=== PATIENT | female | born 1945 | race Two or more races ===

== ENCOUNTER 2020-01-22 09:36 | Outpatient (REF) | payer MEDICARE, SELFPAY ==
[2020-01-22 10:56] LABS: MANUAL DIFF FLAG NO
[2020-01-22 11:06] LABS: Basophils Percent Auto 0.5 % (0-2); Eosinophils Absolute Auto 0.2 X10*3/uL (0.0-0.4); Eosinophils Percent Auto 3.1 % (0-4); Hematocrit 40.3 % (37-47); Hemoglobin 13.6 g/dl (12.0-16.0); Imm Gran Abs Auto 0.01 X10*3/uL (0.00-0.03); Imm Gran Pct Auto 0.1 % (0.0-0.4); Lymphocytes Absolute Auto 2.6 X10*3/uL (1.2-4.9); Mean Corpuscular HGB Conc 33.7 g/dl (31.0-35.0); Mean Corpuscular Hemoglobin 31.1 pg (27.0-33.0); Mean Platelet Volume 9.6 fL (9.4-12.3); Monocytes Absolute Auto 0.6 X10*3/uL (0.1-1.2); Monocytes Percent Auto 8.4 % (2-11); Neutrophils Absolute Auto 3.9 X10*3/uL (2.0-8.3); Neutrophils Percent Auto 52.9 % (45-73); Platelet Count 330 X10*3/uL (160-400); Red Blood Count 4.38 X10*6/uL (4.20-5.50); Red Cell Distribution Width 12.2 % (11.0-16.0); White Blood Count 7.4 X10*3/uL (4.8-10.8)
[2020-01-22 11:50] LABS: Alanine Aminotransferase 19 U/L (0-31); Albumin Level 4.4 g/dL (3.5-5.0); Alkaline Phosphatase 53 U/L (39-117); Aspartate Amino Transferase 14 U/L (5-31); Bilirubin Total 0.5 mg/dL (0.0-1.0); Blood Urea Nitrogen 14 mg/dL (9-16); Calcium 9.3 mg/dL (8.4-10.2); Cholesterol 230 mg/dL; Estimated Glomerular Filt Rate > 60; Glucose Fasting 92 mg/dL (60-99); HDL Cholesterol 38 mg/dL; LDL Cholesterol Calculated 157 mg/dl; Total Protein 6.9 g/dL (6.5-8.0); Triglycerides 175 mg/dL
[2020-01-22 11:59] LABS: Anion Gap 12 (12-20); Carbon Dioxide 30 mmol/L (22-29); Chloride 104 mmol/L (96-108); Potassium 4.8 mmol/l (3.3-5.1); Sodium 141 mmol/L (135-145)
[2020-01-24 21:25] LABS: Folate 5.5 ng/mL (> or = 4.0); Vitamin B12 297 pg/mL (200-900)
== END 2020-01-22 09:37 | disposition home or self-care (01) ==
LOC: HO.LAB 09:36
PROVIDERS: PCP Internal Medicine; Visit Provider Internal Medicine
DX: E78.00 Pure hypercholesterolemia, unspecified (principal); E53.8 Deficiency of other specified B group vitamins; E55.9 Vitamin D deficiency, unspecified
CPT/HCPCS: 36415; 80053; 80061; 82306; 82607; 82746; 85025

== ENCOUNTER 2020-02-15 09:26 | Outpatient (REF) | payer MEDICARE, SELFPAY ==
--- NOTE | 2020-02-15 10:23 | XR_ITS ---
EXAMINATION: XR SHOULDER, RIGHT CLINICAL INFORMATION: Hypertrophic osteoarthropathy. Right shoulder pain. COMPARISON: None TECHNIQUE: AP external rotation, Grashey, scapular Y, and axillary views of the right shoulder. FINDINGS: There is loss of the glenohumeral joint space and right AC joint space with mild periapical spurring. There is a large inferior acromion enthesophyte impinging the rotator cuff. XR/XR shoulder RT min 2V IMPRESSION: Advanced degenerative arthritic changes right shoulder with moderate size inferior acromial spurring with likely impingement of the rotator cuff.
== END 2020-02-15 09:27 | disposition home or self-care (01) ==
LOC: HO.XRAY 09:26
PROVIDERS: PCP Internal Medicine; Referring Provider Internal Medicine; Visit Provider Student in an Organized Health Care Education/Training Program
DX: M25.511 Pain in right shoulder (principal); M89.49 Other hypertrophic osteoarthropathy, multiple sites
CPT/HCPCS: 20610; 73030; 99212

== ENCOUNTER 2020-03-01 11:21 | Day surgery (SDC) | payer MEDICARE, SELFPAY ==
[2020-02-23 11:42] VITALS: BMI 64.9
[2020-03-01 11:21] VITALS: BMI 29.4
--- NOTE | 2020-03-01 11:49 | HO.ANESPROP2 ---
[facility] Past Medical History Medical History (Updated 02/23/20 @ 11:42 by Yandy Sanchez) Allergic rhinitis Degenerative disc disease, lumbar GERD (gastroesophageal reflux disease) Hypovitaminosis D Insomnia Mild asthma Osteoarthritis Pure hypercholesterolemia Right shoulder pain Trigeminal neuralgia Family History Family History (Updated 01/28/20 @ 14:15 by ISAIAS Alcnatar) Father Leukemia Mother Gallbladder cancer Maternal Aunt Breast cancer Chronic mental illness Son Liver failure Family/Other FH: mental illness Surgical History Surgical History (Updated 02/23/20 @ 11:42 by Yandy Sanchez) H/O colonoscopy History of cataract surgery History of cholecystectomy History of esophagogastroduodenoscopy (EGD) History of tubal ligation Social History Social History (Updated 02/15/20 @ 09:39 by Tomi Gilman LPN) Alcohol intake: never Smoking Status: Never smoker Use of substances other than those prescribed or required for medical reasons: No Advance Directives Information Provided: No Recently lost weight without trying: No Meds Allergies Allergy/AdvReac Type Severity Reaction Status Date / Time aspirin [ASPIRIN] Allergy Intermediate VOMITING Verified 02/23/20 11:45 omeprazole Allergy Intermediate vomiting, Verified 02/23/20 11:45 abd pain gabapentin AdvReac Intermediate tiredness,n Verified 02/23/20 11:45 ightmares Home Medications Medication Instructions Recorded Confirmed Type mirabegron 25 mg tablet,extended 25 mg PO DAILY 01/31/20 02/23/20 History release 24 hr diclofenac sodium 1 % topical gel 2 g TOPICAL .twice a day g 02/15/20 02/23/20 History Exam Exam Date and Time: March 01, 2020 1149 Height,Weight and Vital Signs: Height 5 ft 2 in Weight 73.028 kg Airway Mallampati Class: III (2 teeth present on bottom) TM Dist: >3cm Neck ROM: Full Partial: Upper Heart: RRR Lungs: CTA BL Assessment and Plan Assessment Anesthesia Assessment: Anesthesia Plan Discussed and Chart Reviewed Final Anesthetic Review NPO: Yes (No meds) ASA Class: II Final Preanesthetic Review: Meds/Allgs Chart Reviewed and Consent Obtained/Reviewed Patient Risk: Intermediate Procedure Risk: Intermediate Anesthetic Plan Anesthetic Plan: MAC: Disposition: Standard PACU
[2020-03-01 11:50] VITALS: BP 151/71; PULSE 67; RESP 16; TEMP 35.9; O2SAT 99
[2020-03-01] MEDS: Lactated Ringers 1,000 ML 50 ML IVCONT (11:53)
--- NOTE | 2020-03-01 12:03 | MHC.SHP ---
Pre-Procedural Eval Section B Chief Complaint: SCREENING Relevant Family History (Specify if Yes): No Relevant Social History: None Present Medications: see Short Stay Collaborative assessment Medical History: Significant History (HTN) History of Previous Operations: Relevant previous surgery/procedure and date(s) (cholecystectomy, asthma, depression, osteporosis) Allergies: Allergies Allergy/AdvReac Type Severity Reaction Status Date / Time aspirin [ASPIRIN] Allergy Intermediate VOMITING Verified 02/23/20 11:45 omeprazole Allergy Intermediate vomiting, Verified 02/23/20 11:45 abd pain gabapentin AdvReac Intermediate tiredness,n Verified 02/23/20 11:45 ightmares Review of Systems Sugical H&P ROS: Negative: Constitution, Cardiovascular, Respiratory, Neurological, Psychiatric, Hem-Onc, Allergic/Immunologic, Gastrointestinal, Genitourinary, Musculoskeletal, Integumentary, Endocrine and Eyes/Ears/Nose/Throat Exam Surgical H&P Exam: Normal: HEENT, Normal: Heart, Normal: Lungs, Normal: Extremities, Normal: Abdomen, Normal: Skin and Normal: Neurological Plan Diagnosis/Plan: Unchanged Patient has been examined and remains a candidate for the planned procedure
--- NOTE | 2020-03-01 12:04 | PM.OP ---
Brief Operative Note Date of Service: 03/01/20 Pre-op diagnosis: screening Post-op diagnosis: same Procedure: see op note Surgeon: Aaron Morillo MD Anesthesia: MAC Estimated blood loss (mL): 0 Condition: stable Disposition: PACU
--- NOTE | 2020-03-01 12:05 | W.PM.OPN ---
Operative Note Operative Note Date of Service: 03/01/20 Narrative: Operative Information Procedure Description: Colonoscopy COLONOSCOPY Instrument: Olympus variable stiffness pediatric scope 190L Colonoscopy Monitoring: Vital signs and clinical assessment, continuous EKG monitoring, Pulse oximetry, Carbon Dioxide monitoring and blood pressure monitoring were done throughout the procedure. Colon withdrawal time was 12 minutes. Procedure: The patient was placed in the left lateral decubitis position and pre-procedure medications were administered. After a digital rectal examination of the ano-rectum, the video colonoscope was inserted into the rectum and advanced through the colon to the cecum The colonoscope was slowly withdrawn in a retrograde panoramic fashion and the colon mucosa was carefully examined including a retroflexed view of the rectum. Findings and interventions are described below. Procedure Difficulty: difficult due to redundant colon, had to put pressure LLQ Findings: Terminal Ileum-not intubated Cecum:normal Ascending Colon: x 2 sessile polyps 8-9 mm removed with biopsy forceps Transverse Colon -normal Descending Colon:normal Sigmoid Colon: severe diverticulosis with mucosal hypertrophy and narrowing of the sigmoid Rectum: Retroflexion with moderate internal hemorrhoids, grade I, 8 mm sessile polyp removed with forceps Anorectum - normal Colon preparation: [place] Bowel Preparation Scale Right colon; 2 Transverse colon: 1 Left colon; 1 (0 = Unprepared colon segment with mucosa not seen due to solid stool that cannot be cleared. 1 = Portion of mucosa of the colon segment seen, but other areas of the colon segment not well seen due to staining, residual stool and/or opaque liquid. 2 = Minor amount of residual staining, small fragments of stool and/or opaque liquid, but mucosa of colon segment seen well. 3 = Entire mucosa of colon segment seen well with no residual staining, small fragments of stool or opaque liquid) Impression and Post Procedure Diagnosis: severe diverticulosis polyps internal hemorrhoids Plan: High fiber diet leaflet Avoid straining at stool, epsom salts and sitz bath prn, anusol supps or cream prn Repeat Colonoscopy in 1-2 yrs years due to prep Above findings were reviewed with the patient and relevant handouts were provided if indicated.
[2020-03-01 12:45] VITALS: BP 143/79; PULSE 92; RESP 16; TEMP 36.4; O2SAT 96
[2020-03-01 13:00] VITALS: BP 146/65; PULSE 81; RESP 18; O2SAT 98
[2020-03-01 13:15] VITALS: BP 148/58; PULSE 61; RESP 18; O2SAT 98
== END 2020-03-01 14:00 | disposition home or self-care (01) ==
PROVIDERS: PCP Internal Medicine; Visit Provider Internal Medicine Gastroenterology
PROC: 0DJD8ZZ Inspection of Lower Intestinal Tract, Via Natural or Artificial Opening Endoscopic (ICD-10-PCS; CPT 45378; principal; 2020-03-01 12:20)
DX: Z12.11 Encounter for screening for malignant neoplasm of colon (principal); Z86.010 Personal history of colon polyps; D12.2 Benign neoplasm of ascending colon; K62.1 Rectal polyp; K57.30 Diverticulosis of large intestine without perforation or abscess without bleeding; K64.0 First degree hemorrhoids; K21.9 Gastro-esophageal reflux disease without esophagitis; J45.998 Other asthma; E55.9 Vitamin D deficiency, unspecified; E78.00 Pure hypercholesterolemia, unspecified; Z79.899 Other long term (current) drug therapy; Z88.8 Allergy status to other drugs, medicaments and biological substances
CPT/HCPCS: 45380; 88305

== ENCOUNTER → 2020-03-22 09:09 | Outpatient (BNVA) | payer MEDICARE, SELFPAY | PROVIDERS: Visit Provider Physician Assistant | DX: K63.5 Polyp of colon (principal); K57.90 Diverticulosis of intestine, part unspecified, without perforation or abscess without bleeding; K64.9 Unspecified hemorrhoids; D36.9 Benign neoplasm, unspecified site | CPT/HCPCS: Q3014 ==

== ENCOUNTER → 2020-06-15 14:41 | Outpatient (BNVA) | payer MEDICARE, SELFPAY | PROVIDERS: PCP Internal Medicine; Visit Provider Student in an Organized Health Care Education/Training Program | DX: M19.011 Primary osteoarthritis, right shoulder (principal); Z79.899 Other long term (current) drug therapy | CPT/HCPCS: 20610; 99212 ==

== ENCOUNTER 2020-09-18 13:30 | Outpatient (REF) | payer MEDICARE, SELFPAY ==
--- NOTE | ~2020-09-18 | MM_ITS ---
EXAMINATION: MM SCREENING DIGITAL BREAST TOMOSYNTHESIS, BILATERAL CLINICAL INFORMATION: Screening. Asymptomatic. The lifetime risk of breast cancer based on the Tyrer-Cuzick Model is 6%. COMPARISON: Mammography: 04/30/2019, 03/09/2018, 10/17/2016 TECHNIQUE: Digital breast tomosynthesis is performed in both the craniocaudal and mediolateral oblique views along with computer-aided detection (CAD). Synthesized 2D images are generated from the tomosynthesis. FINDINGS: The breasts are almost entirely fatty (ACR BI-RADS breast composition Category a). There are no significant masses, abnormal calcifications, or other abnormalities. Background stromal markings are stable. The axilla and skin contours are unremarkable. No significant changes. MM/MM tomosynthesis screening BI IMPRESSION: No mammographic evidence of malignancy. ASSESSMENT: BI-RADS 1: Negative RECOMMENDATION: Routine annual mammography screening. This patient's information was entered into a reminder system with a target due date for their next mammogram.
== END 2020-09-18 13:31 | disposition home or self-care (01) ==
LOC: HO.MAMMO 13:30
PROVIDERS: Visit Provider Internal Medicine
DX: Z12.31 Encounter for screening mammogram for malignant neoplasm of breast (principal)
CPT/HCPCS: 77063; 77067

== ENCOUNTER 2020-12-25 13:41 | Outpatient (REF) | payer MEDICARE, SELFPAY ==
[2020-12-25 15:28] LABS: Alanine Aminotransferase 12 U/L (0-31); Albumin Level 4.3 g/dL (3.5-5.0); Alkaline Phosphatase 58 U/L (39-117); Anion Gap 12 (12-20); Aspartate Amino Transferase 11 U/L (5-31); Bilirubin Total 0.5 mg/dL (0.0-1.0); Blood Urea Nitrogen 18 mg/dL (9-16); Calcium 9.7 mg/dL (8.4-10.2); Carbon Dioxide 26 mmol/L (22-29); Chloride 105 mmol/L (96-108); Estimated Glomerular Filt Rate > 60; Glucose Random 98 mg/dL (60-115); Potassium 4.2 mmol/L (3.3-5.1); Sodium 139 mmol/L (135-145); Total Protein 6.8 g/dL (6.5-8.0)
== END 2020-12-25 13:42 | disposition home or self-care (01) ==
LOC: HO.LAB 13:41
PROVIDERS: Visit Provider Nurse Practitioner Family
DX: M19.011 Primary osteoarthritis, right shoulder (principal)
CPT/HCPCS: 36415; 80053; 99212

== ENCOUNTER 2021-01-11 11:49 | Outpatient (REF) | payer MEDICARE, SELFPAY ==
--- NOTE | ~2021-01-11 | XR_ITS ---
EXAMINATION: XR SHOULDER, RIGHT CLINICAL INFORMATION: Pain. COMPARISON: None. TECHNIQUE: AP, Grashey, and axillary views of the right shoulder. FINDINGS: Severe glenohumeral joint space narrowing with subchondral sclerosis, mild bony remodeling, and marginal osteophytes. Acromioclavicular marginal osteophytes with prominent subchondral spurring. No acute fracture or dislocation. XR/XR shoulder RT min 2V IMPRESSION: Severe glenohumeral and moderate acromioclavicular osteoarthritis, unchanged. Prominent subacromial spurring.
== END 2021-01-11 11:50 | disposition home or self-care (01) ==
LOC: HO.HOSX 11:49
PROVIDERS: Visit Provider Orthopaedic Surgery
DX: M19.011 Primary osteoarthritis, right shoulder (principal)
CPT/HCPCS: 20610; 73030; 99202; J1100

== ENCOUNTER 2021-02-02 09:19 | Outpatient (REF) | payer MEDICARE, SELFPAY ==
[2021-02-02 10:11] LABS: Alanine Aminotransferase 13 U/L (0-31); Albumin Level 4.3 g/dL (3.5-5.0); Alkaline Phosphatase 55 U/L (39-117); Anion Gap 11 (12-20); Aspartate Amino Transferase 11 U/L (5-31); Bilirubin Total 0.5 mg/dL (0.0-1.0); Blood Urea Nitrogen 15 mg/dL (9-16); Calcium 9.4 mg/dL (8.4-10.2); Carbon Dioxide 28 mmol/L (22-29); Chloride 107 mmol/L (96-108); Cholesterol 155 mg/dL; Estimated Glomerular Filt Rate > 60; Glucose Fasting 109 mg/dL (60-99); HDL Cholesterol 34 mg/dL; LDL Cholesterol Calculated 95 mg/dl; Potassium 4.3 mmol/L (3.3-5.1); Sodium 142 mmol/L (135-145); Total Protein 6.9 g/dL (6.5-8.0); Triglycerides 132 mg/dL
[2021-02-07 13:56] LABS: Vitamin D 25-OH, D2 <4 ng/mL; Vitamin D 25-OH, D3 35 ng/mL; Vitamin D 25-OH, Total 35 ng/mL (30-100)
== END 2021-02-02 09:20 | disposition home or self-care (01) ==
LOC: HO.LAB 09:19
PROVIDERS: PCP Internal Medicine; Visit Provider Internal Medicine
DX: E55.9 Vitamin D deficiency, unspecified (principal); J45.30 Mild persistent asthma, uncomplicated; E78.5 Hyperlipidemia, unspecified
CPT/HCPCS: 36415; 80053; 80061; 82306

== ENCOUNTER → 2021-04-23 10:39 | Outpatient (BNVA) | payer MEDICARE, SELFPAY | PROVIDERS: PCP Internal Medicine; Visit Provider Nurse Practitioner Family | DX: M19.011 Primary osteoarthritis, right shoulder (principal) | CPT/HCPCS: 99212 ==

== ENCOUNTER 2021-09-19 14:33 | Outpatient (REF) | payer MEDICARE, SELFPAY ==
--- NOTE | ~2021-09-19 | MM_ITS ---
EXAMINATION: MM SCREENING DIGITAL BREAST TOMOSYNTHESIS, BILATERAL CLINICAL INFORMATION: Screening. Asymptomatic. The lifetime risk of breast cancer based on the Tyrer-Cuzick Model is 3.1%. COMPARISON: Mammography: September 18, 2020 and studies dating back to August 18, 2014 TECHNIQUE: Digital breast tomosynthesis is performed in both the craniocaudal and mediolateral oblique views along with computer-aided detection (CAD). Synthesized 2D images are generated from the tomosynthesis. FINDINGS: The breasts are almost entirely fatty (ACR BI-RADS breast composition Category a). There are no significant masses, abnormal calcifications, or other abnormalities. MM/MM tomosynthesis screening BI IMPRESSION: There are no significant changes from prior study. ASSESSMENT: BI-RADS 1: Negative RECOMMENDATION: Routine annual mammography screening. This patient's information was entered into a reminder system with a target due date for their next mammogram.
== END 2021-09-19 14:34 | disposition home or self-care (01) ==
LOC: HO.MAMMO 14:33
PROVIDERS: PCP Internal Medicine; Visit Provider Internal Medicine
DX: Z12.31 Encounter for screening mammogram for malignant neoplasm of breast (principal)
CPT/HCPCS: 77063; 77067

== ENCOUNTER → 2022-01-17 09:41 | Outpatient (BNVA) | payer MEDICARE, SELFPAY | PROVIDERS: PCP Internal Medicine; Visit Provider Student in an Organized Health Care Education/Training Program | DX: M19.011 Primary osteoarthritis, right shoulder (principal); M54.16 Radiculopathy, lumbar region | CPT/HCPCS: 20610; 99202 ==

== ENCOUNTER 2022-05-01 09:04 | Outpatient (REF) | payer OTHER, SELFPAY ==
[2022-05-01 10:20] LABS: Alanine Aminotransferase 16 U/L (0-31); Albumin Level 4.2 g/dL (3.5-5.0); Alkaline Phosphatase 58 U/L (39-117); Anion Gap 8 (12-20); Aspartate Amino Transferase 12 U/L (5-31); Bilirubin Total 0.3 mg/dL (0.0-1.0); Blood Urea Nitrogen 10 mg/dL (9-16); Calcium 9.3 mg/dL (8.4-10.2); Carbon Dioxide 30 mmol/L (22-29); Chloride 107 mmol/L (96-108); Cholesterol 247 mg/dL; Estimated Glomerular Filt Rate > 60; Glucose Fasting 99 mg/dL (60-99); HDL Cholesterol 42 mg/dL; LDL Cholesterol Calculated 170 mg/dl; Potassium 4.3 mmol/L (3.3-5.1); Sodium 141 mmol/L (135-145); Total Protein 6.8 g/dL (6.5-8.0); Triglycerides 178 mg/dL
[2022-05-01 10:40] LABS: Vitamin D 25-OH Total 37.2 ng/mL (>30)
== END 2022-05-01 09:05 | disposition home or self-care (01) ==
LOC: HO.LAB 09:04
PROVIDERS: PCP Internal Medicine; Visit Provider Internal Medicine
DX: J45.30 Mild persistent asthma, uncomplicated (principal); E55.9 Vitamin D deficiency, unspecified; E78.5 Hyperlipidemia, unspecified
CPT/HCPCS: 36415; 80053; 80061; 82306

== ENCOUNTER 2022-10-21 07:46 | Outpatient (REF) | payer OTHER, SELFPAY ==
[2022-10-21 09:15] LABS: Alanine Aminotransferase 12 U/L (0-31); Albumin Level 4.1 g/dL (3.5-5.0); Alkaline Phosphatase 64 U/L (39-117); Anion Gap 11 (12-20); Aspartate Amino Transferase 11 U/L (5-31); Bilirubin Total 0.4 mg/dL (0.0-1.0); Blood Urea Nitrogen 11 mg/dL (9-16); Calcium 9.8 mg/dL (8.4-10.2); Carbon Dioxide 31 mmol/L (22-29); Chloride 107 mmol/L (96-108); Cholesterol 226 mg/dL; Estimated Glomerular Filt Rate > 60; Glucose Fasting 105 mg/dL (60-99); HDL Cholesterol 35 mg/dL; LDL Cholesterol Calculated 157 mg/dl; Potassium 4.3 mmol/L (3.3-5.1); Sodium 145 mmol/L (135-145); Total Protein 6.9 g/dL (6.5-8.0); Triglycerides 170 mg/dL
[2022-10-21 09:22] LABS: Vitamin D 25-OH Total 47.4 ng/mL (>30)
== END 2022-10-21 07:47 | disposition home or self-care (01) ==
LOC: HO.LAB 07:46
PROVIDERS: PCP Internal Medicine; Visit Provider Internal Medicine
DX: E55.9 Vitamin D deficiency, unspecified (principal); E78.00 Pure hypercholesterolemia, unspecified; E78.5 Hyperlipidemia, unspecified
CPT/HCPCS: 36415; 80053; 80061; 82306

== ENCOUNTER 2022-10-25 11:23 | Outpatient (REF) | payer OTHER, SELFPAY ==
--- NOTE | ~2022-10-25 | MM_ITS ---
EXAMINATION: MM SCREENING DIGITAL BREAST TOMOSYNTHESIS, BILATERAL CLINICAL INFORMATION: Screening. Asymptomatic. The lifetime risk of breast cancer based on the Tyrer-Cuzick Model is 1.9%. COMPARISON: Mammography: This study is compared with prior exams dating back to 2017. TECHNIQUE: Digital breast tomosynthesis is performed in both the craniocaudal and mediolateral oblique views along with computer-aided detection (CAD). Synthesized 2D images are generated from the tomosynthesis. FINDINGS: There are scattered areas of fibroglandular density (ACR BI-RADS breast composition Category b). There are no significant masses, abnormal calcifications, or other abnormalities. MM/MM tomosynthesis screening BI IMPRESSION: No mammographic evidence of malignancy. ASSESSMENT: BI-RADS BI-RADS 1 - Negative RECOMMENDATION: Routine annual mammography screening. 1 year F/U This examination should not preclude the clinical evaluation of a suspicious palpable abnormality. This patient's information was entered into a reminder system with a target due date for their next mammogram.
== END 2022-10-25 11:24 | disposition home or self-care (01) ==
LOC: HO.MAMMO 11:23
PROVIDERS: PCP Internal Medicine; Visit Provider Internal Medicine
DX: Z12.31 Encounter for screening mammogram for malignant neoplasm of breast (principal)
CPT/HCPCS: 77063; 77067

== ENCOUNTER → 2022-10-25 11:30 | Outpatient (BNV) | payer OTHER, SELFPAY | PROVIDERS: PCP Internal Medicine; Visit Provider Radiology Diagnostic Radiology | DX: Z12.31 Encounter for screening mammogram for malignant neoplasm of breast (principal) | CPT/HCPCS: 77063; 77067 ==

== ENCOUNTER 2023-04-08 09:46 | Outpatient (AMB) | payer OTHER, SELFPAY ==
--- NOTE | 2023-04-08 09:47 | MHC.PC.OV ---
Vital Signs 04/08/23 09:48 04/08/23 09:53 Height 5 ft 2 in 5 ft 2 in Weight 156 lb 154 lb 5.177 oz BMI 28.5 28.2 BP 124/76 124/76 Blood Pressure Location Lt brachial Lt brachial Position Sitting Sitting Pulse 84 Pulse Source Pulse Oximeter Pulse Oximetry (%) 96 Oxygen Delivery Method Room Air Intake Visit Reasons: lipids Intake Note: Patient here for a follow up Lipids Wan Support Specialist Required: No Accompanied by: Self / Same As Patient Allergies aspirin [ASPIRIN] Allergy (Intermediate, Verified 04/08/23 10:07) VOMITING omeprazole Allergy (Intermediate, Verified 04/08/23 10:07) vomiting, abd pain gabapentin Adverse Reaction (Intermediate, Verified 04/08/23 10:07) tiredness,nightmares Medication List - Last Reconciled 04/08/23 by Sarah Gonzales MD acetaminophen ER (Tylenol Arthritis Pain) 650 mg PO Q8H PRN albuterol sulfate 90 mcg/actuation 2 puffs inhalation Q6H PRN 30 days atorvastatin 20 mg PO BEDTIME 90 days fluticasone propionate 50 mcg/actuation (Flonase Allergy Relief) 1 spray intranasal DAILY temazepam 30 mg PO BEDTIME PRN 30 days tramadol 50 mg PO BID PRN 30 days Ventolin HFA 90 mcg/actuation (albuterol sulfate) 2 puffs inhalation Q6H PRN 30 days NS Tobacco use date assessed: 10/09/22 Fall risk assessment: No Falls in past year Last assessed Fall Risk: 04/08/23 Dental Screening Dental Screen Date: 04/08/23 Did you have a dental visit in the last 12 months?: No Did you have a dental problem in the last 6 months where you did not have access to dental care?: No Was dental information given to patient?: No HPI HPI Comments History of Present Illness Details This is a 78-year-old female with moderate asthma, pure hypercholesterolemia and insomnia that complains of nasal congestion and cough that started about 2 days ago with no fever or sick contacts. She had has and 2 episodes of asthma exacerbations since January and will benefit from having a longstanding inhaler. Cholesterol has improved from last time. Insomnia stable with medication. [facility] Medical History (Updated 04/08/23 @ 11:35 by Sarah Gonzales MD) Mild asthma Dyslipidemia Colon polyps Degenerative disc disease, lumbar GERD (gastroesophageal reflux disease) Osteoarthritis Insomnia Allergic rhinitis Mild asthma Right shoulder pain Hypovitaminosis D Trigeminal neuralgia Surgical History History of surgery History of bladder surgery History of esophagogastroduodenoscopy (EGD) H/O colonoscopy History of cataract surgery History of cholecystectomy History of tubal ligation Family History Father Leukemia Mother Gallbladder cancer Maternal Aunt Breast cancer Chronic mental illness Son Liver failure Family/Other FH: mental illness Daughter No problems noted. Social History Housing: Apartment Alcohol intake: never Patient Tobacco Use Status: Never used Tobacco e-Cigarette/Vaping Use: Never Used Second Hand Smoke Exposure: No service: No Current occupational status: disabled Cognitive needs: No Hearing needs: No Vision needs: No Questionnaire Thrive Questionnaire Date Thrive assessed: 10/09/22 JAMEEL-7 AMB Questionnaire JAMEEL-7 Date JAMEEL - 7 assessed: 10/09/22 Source: Developed by Drs. Alpesh Carter, Maritza Richards, Mitchel Head and colleagues, with an educational helga from [employer]. Review of Systems Const All systems reviewed & are unremarkable except as noted in HPI and below Eyes Reports no additional complaints, Denies change in vision and Denies other visual disturbances Card Denies chest pain at rest, Denies chest pain with activity, Denies edema, Denies irregular heart rhythm, Denies claudication, Denies dyspnea, Denies dyspnea on exertion, Denies orthopnea, Denies paroxysmal nocturnal dyspnea and Denies slow heart rate Resp Denies cough, Denies dyspnea and Denies dyspnea on exertion GI Denies abdominal pain, Denies change in bowel habits, Denies excessive flatus, Denies nausea and Denies vomiting Denies urinary incontinence, Denies urinary hesitancy and Denies urinary urgency Musc Denies abnormal gait, Denies atrophy, Denies deformity and Denies limited range of motion Skin/Breast Denies bleeding lesions, Denies changing lesions and Denies rash Neuro Denies abnormal gait and Denies lack of coordination Physical exam (Primary Care) Vital Signs: Last Vital Signs Pulse 84 04/08/23 09:53 BP 124/76 12/26/23 09:53 Pulse Ox 96 04/08/23 09:53 Oxygen Delivery Method Room Air 04/08/23 09:53 BMI result Body Mass Index 28.2 Tobacco/Smoking Status: Tobacco use Status Tobacco use date assessed 10/09/22 04/08/23 09:54 Patient Tobacco Use Status Never used Tobacco 04/08/23 09:54 e-Cigarette/Vaping Use Never Used 04/08/23 09:54 Thrive Assessment: Date of Thrive Assessment Date Thrive assessed 10/09/22 04/08/23 09:54 Eyes General: appearance normal, both eyes and all related structures Eyelids: Yes eyelids normal Conjunctivae: conjunctivae normal Neck Neck: Yes normal visual inspection and Yes supple Resp Effort & Inspection: normal respiratory effort Auscultation: clear to auscultation bilaterally Cardio Jugular venous distension: no JVD Rate: regular rate Rhythm: regular rhythm Heart sounds: S1 normal heart sound present and S2 normal heart sound present Extrem General: Yes full ROM Office Procedures Flu Questionnaire Does the patient have a severe egg allergy?: No Immunizations flu vacc [id number] 6mos up(PF) 60 mcg(15 mcgx4)/0.5 mL IM syringe Performing Provider: Sarah Gonzales MD [facility] Documented (not given) by: ISAIAS Singh on 04/08/23 10:19 Reason Not Given: Not Given Assessment and Plan Assessment & Plan (1) URI (upper respiratory infection): Code(s): J06.9 - Acute upper respiratory infection, unspecified Plan: COVID, flu, RSV test ordered (2) Moderate asthma: Code(s): J45.909 - Unspecified asthma, uncomplicated Plan: Start Arnuity. Use rescue inhaler as needed. (3) Pure hypercholesterolemia: Code(s): E78.00 - Pure hypercholesterolemia, unspecified Plan: Continue statins. (4) Insomnia: Code(s): G47.00 - Insomnia, unspecified Qualifiers: Insomnia type: primary Qualified Code(s): F51.01 - Primary insomnia Plan: Continue temazepam. Orders: Orders SARS-CoV2/FLU/RSV Today R09.89 - Other specified symptoms and signs involving the circulatory and respiratory systems Influenza [id number] Immunization Today Z23 - Encounter for immunization Medications: New fluticasone furoate 50 mcg/actuation (Arnuity Ellipta) 1 inh inhalation DAILY 30 days 30 ea 2RF J45.909 - Unspecified asthma, uncomplicated benzonatate 100 mg PO BID 5 days PRN 10 caps 0RF cough Coding Level of Care Code Est Pt Level 4 (19138) Diagnoses URI (upper respiratory infection) J06.9 Moderate asthma J45.909 Pure hypercholesterolemia E78.00 Primary insomnia F51.01 Insomnia type: primary Time Spent (min) 23
[2023-04-08 09:48] VITALS: BP 124/76; BMI 28.5
[2023-04-08 09:53] VITALS: BP 124/76; PULSE 84; O2SAT 96; BMI 28.2
== END 2023-04-08 10:14 | disposition home or self-care (01) ==
PROVIDERS: PCP Internal Medicine; Visit Provider Internal Medicine
DX: J06.9 Acute upper respiratory infection, unspecified (principal); J45.909 Unspecified asthma, uncomplicated; E78.00 Pure hypercholesterolemia, unspecified; F51.01 Primary insomnia
CPT/HCPCS: 99214

== ENCOUNTER 2023-04-08 10:22 | Outpatient (REF) | payer OTHER, SELFPAY ==
[2023-04-08 11:28] LABS: Influenza A PCR NEGATIVE (Negative); Influenza B PCR NEGATIVE (Negative); Resp Syncy Virus RNA Qual PCR NEGATIVE (Negative); SARS COV2 PCR INHOUSE POSITIVE (Negative)
== END 2023-04-08 10:23 | disposition home or self-care (01) ==
LOC: HO.LAB 10:22
PROVIDERS: PCP Internal Medicine; Visit Provider Internal Medicine
DX: Z11.52 Encounter for screening for COVID-19 (principal); Z20.822 Contact with and (suspected) exposure to COVID-19; R09.89 Other specified symptoms and signs involving the circulatory and respiratory systems
CPT/HCPCS: 0241U

== ENCOUNTER 2023-10-14 09:25 | Outpatient (AMB) | payer OTHER, SELFPAY ==
[2023-10-14 09:29] VITALS: BP 122/70; PULSE 69; O2SAT 96; BMI 28.4
--- NOTE | 2023-10-14 09:29 | A.OFFPC_ITS ---
Vital Signs 10/14/23 09:29 Height 5 ft 2 in Weight 155 lb 0.4 oz BMI 28.4 BP 122/70 Blood Pressure Location Lt brachial Position Sitting Pulse 69 Pulse Source Pulse Oximeter Pulse Oximetry (%) 96 Oxygen Delivery Method Room Air Intake Visit Reasons: pe Intake Note: Patient is here today for a physical. Release And Technical Records Clerk Required: No Accompanied by: Self / Same As Patient Allergies aspirin [ASPIRIN] Allergy (Intermediate, Verified 10/14/23 09:42) VOMITING omeprazole Allergy (Intermediate, Verified 10/14/23 09:42) vomiting, abd pain gabapentin Adverse Reaction (Intermediate, Verified 10/14/23 09:42) tiredness,nightmares Medication List - Last Reconciled 10/14/23 by Sarah Gonzales MD acetaminophen ER (Tylenol Arthritis Pain) 650 mg PO Q8H PRN albuterol sulfate 90 mcg/actuation 2 puffs inhalation Q6H PRN 30 days atorvastatin 20 mg PO BEDTIME 90 days benzonatate 100 mg PO BID PRN 5 days fluticasone furoate 50 mcg/actuation (Arnuity Ellipta) 1 inh inhalation DAILY 30 days fluticasone propionate 50 mcg/actuation (Flonase Allergy Relief) 1 spray intranasal DAILY nirmatrelvir-ritonavir 300 mg (150 mg x 2)-100 mg (Paxlovid) 3 ea PO PER PKG DIR 5 days temazepam 30 mg PO BEDTIME PRN 30 days tramadol 50 mg PO BID PRN 30 days Ventolin HFA 90 mcg/actuation (albuterol sulfate) 2 puffs inhalation Q6H PRN 30 days NS Tobacco use date assessed: 10/14/23 Fall risk assessment: No Falls in past year Last assessed Fall Risk: 10/14/23 Dental Screening Dental Screen Date: 10/14/23 Did you have a dental visit in the last 12 months?: No Did you have a dental problem in the last 6 months where you did not have access to dental care?: No Was dental information given to patient?: Patient has dentist HPI HPI Comments History of Present Illness Details This is 78-year-old female that comes for her physical exam. Last mammogram was 2022 and was normal. Last colonoscopy was 2019. Denies any acute complaints. Chest pain or shortness on breath. Compliant with medications. [facility] Medical History (Updated 04/08/23 @ 11:35 by Sarah Gonzales MD) Mild asthma Dyslipidemia Colon polyps Degenerative disc disease, lumbar GERD (gastroesophageal reflux disease) Osteoarthritis Insomnia Allergic rhinitis Mild asthma Right shoulder pain Hypovitaminosis D Trigeminal neuralgia Surgical History History of surgery History of bladder surgery History of esophagogastroduodenoscopy (EGD) H/O colonoscopy History of cataract surgery History of cholecystectomy History of tubal ligation Family History Father Leukemia Mother Gallbladder cancer Maternal Aunt Breast cancer Chronic mental illness Son Liver failure Family/Other FH: mental illness Daughter No problems noted. Social History Housing: Apartment Alcohol intake: never Patient Tobacco Use Status: Never used Tobacco e-Cigarette/Vaping Use: Never Used Second Hand Smoke Exposure: No service: No Current occupational status: disabled Cognitive needs: No Hearing needs: No Vision needs: No Questionnaire PHQ-9 Over the last 2 weeks, how often have you been bothered by any of the following problems? 1. Little interest or pleasure in doing things: not at all 2. Feeling down, depressed, or hopeless: not at all 3. Trouble falling or staying asleep, or sleeping too much: not at all 4. Feeling tired or having little energy: not at all 5. Poor appetite or overeating: not at all 6. Feeling bad about yourself - or that you are a failure or have let yourself or your family down: not at all 7. Trouble concentrating on things, such as reading the newspaper or watching television: not at all 8. Moving or speaking so slowly that other people could have noticed. Or the opposite - being so fidgety or restless that you have been moving around a lot more than usual: not at all 9. Thoughts that you would be better off or of hurting yourself in some way: not at all Total score: 0 Depression Screening Interpretation: Negative Depression Screening Done: Yes 48700 - PHQ-9 Billing: Yes Source: Developed by Drs. Alpesh Carter, Maritza BMitchel Bailey and colleagues, with an educational helga from [employer]. Thrive Questionnaire Date Thrive assessed: 10/14/23 I am a: Patient What is your living situation today?: I have a steady place to live Within the past 12 months, did the food you bought not last and you didn't have the money to get more?: Never true Within the past 12 months, did you worry whether your food would run out before you got money to buy more?: Never true Do you have trouble paying for medicines?: No Do you have trouble getting transportation to medical appointments?: No Do you have trouble paying your heating and electricity bill?: No Do you have trouble taking care of your child, family member or friend?: No Do you have trouble with day-to-day activities such as bathing, preparing meals, shopping, managing finances, etc.?: No Are you currently unemployed and looking for a job?: No Are you interested in more education?: No Please select the resources that you would like help with: None Currently or been in a relationship where the following occur: No concerns reported THRIVE Score: 0 AUDIT C Alcohol Use Questionnaire (AUDIT-C) 1. How often do you have a drink containing alcohol?: Never Total Score: 0 Score Reviewed/Action Taken: No JAMEEL-7 AMB Questionnaire JAMEEL-7 Date JAMEEL - 7 assessed: 10/14/23 Feeling nervous, anxious, or on edge: 0 = Not at all Not being able to stop or control worryin = Not at all Worrying too much about different things: 0 = Not at all Trouble relaxin = Not at all Being so restless that it is hard to sit still: 0 = Not at all Becoming easily annoyed or irritable: 0 = Not at all Feeling afraid as if something awful might happen: 0 = Not at all Total JAMEEL-7 score (0-4 normal; 5-9 mild; 10-14 moderate; 15-21 severe): 0 Source: Developed by Drs. Alpesh Carter, Mitchel Reyes and colleagues, with an educational helga from [employer] Business Plan. JAMEEL-7 Assessment Billing JAMEEL-7 Assessment Tool: JAMEEL-7 Assessment 16095 Review of Systems Const All systems reviewed & are unremarkable except as noted in HPI and below Card Denies chest pain at rest, Denies chest pain with activity, Denies edema, Denies irregular heart rhythm, Denies claudication, Denies dyspnea, Denies dyspnea on exertion, Denies orthopnea, Denies paroxysmal nocturnal dyspnea and Denies slow heart rate Resp Denies cough, Denies dyspnea and Denies dyspnea on exertion GI Denies abdominal pain, Denies change in bowel habits, Denies excessive flatus, Denies nausea and Denies vomiting Denies urinary incontinence, Denies urinary hesitancy and Denies urinary urgency Musc Denies abnormal gait, Denies atrophy, Denies deformity and Denies limited range of motion Skin/Breast Denies bleeding lesions, Denies changing lesions and Denies rash Neuro Denies abnormal gait and Denies lack of coordination Physical exam (Primary Care) Vital Signs: Last Vital Signs Pulse 69 10/14/23 09:29 BP 122/70 10/14/23 09:29 Pulse Ox 96 10/14/23 09:29 Oxygen Delivery Method Room Air 10/14/23 09:29 BMI result Body Mass Index 28.4 Tobacco/Smoking Status: Tobacco use Status Tobacco use date assessed 10/14/23 10/14/23 09:30 Patient Tobacco Use Status Never used Tobacco 10/14/23 09:30 e-Cigarette/Vaping Use Never Used 10/14/23 09:30 PHQ-9: PHQ-9 Score PHQ-9: Total score 0 10/14/23 10:36 Depression Screening Interpretation: Negative Thrive Assessment: Date of Thrive Assessment Date Thrive assessed 10/14/23 10/14/23 09:30 Currently or been in a relationship where the following occur: No concerns reported Const Orientation/consciousness: patient oriented x3 [facility] Head: Yes normal to inspection, Yes normocephalic and Yes atraumatic Ears: external ears normal Eyes General: appearance normal, both eyes and all related structures Eyelids: Yes eyelids normal Conjunctivae: conjunctivae normal Neck Neck: Yes normal visual inspection and Yes supple Resp Effort & Inspection: normal respiratory effort Auscultation: clear to auscultation bilaterally Cardio Jugular venous distension: no JVD Rate: regular rate Rhythm: regular rhythm Heart sounds: S1 normal heart sound present and S2 normal heart sound present GI Inspection: Yes normal to inspection Palpation (GI): Soft to palpation and nontender Auscultation: normal bowel sounds Skin General skin exam: no rashes or lesions noted Neuro General: patient oriented x3 and no focal motor deficits Extrem General: Yes full ROM Psych Appearance: grossly normal Assessment and Plan Assessment & Plan (1) Physical exam: Code(s): Z00.00 - Encounter for general adult medical examination without abnormal findings Plan: Repeat in a year. Orders: Orders Vitamin D 25-OH Total Today E55.9 - Vitamin D deficiency, unspecified Lipid Panel Today E78.5 - Hyperlipidemia, unspecified Comprehensive [place]. Panel Fast Today Z00.00 - Encounter for general adult medical examination without abnormal findings Coding Level of Care Code Est Pt Prev Care >65y(08099) Diagnoses Physical exam Z00.00 Additional Codes JAMEEL-7 Assessment Billing - JAMEEL-7 Assessment Tool: JAMEEL-7 Assessment 81645 ([id number]) Time Spent (min) 30
== END 2023-10-14 09:57 | disposition home or self-care (01) ==
PROVIDERS: PCP Internal Medicine; Visit Provider Internal Medicine
DX: Z00.00 Encounter for general adult medical examination without abnormal findings (principal)
CPT/HCPCS: 99397

== ENCOUNTER 2023-10-15 08:46 | Outpatient (REF) | payer OTHER, SELFPAY ==
[2023-10-15 10:27] LABS: Alanine Aminotransferase 13 U/L (0-31); Albumin Level 4.1 g/dL (3.5-5.0); Alkaline Phosphatase 57 U/L (39-117); Anion Gap 11 (12-20); Aspartate Amino Transferase 14 U/L (5-31); Bilirubin Total 0.4 mg/dL (0.0-1.0); Blood Urea Nitrogen 12 mg/dL (9-16); Calcium 9.4 mg/dL (8.4-10.2); Carbon Dioxide 29 mmol/L (22-29); Chloride 106 mmol/L (96-108); Cholesterol 228 mg/dL (<200); Estimated Glomerular Filt Rate > 60; Glucose Fasting 103 mg/dL (60-99); HDL Cholesterol 38 mg/dL (>40); LDL Cholesterol Calculated 157 mg/dL (<100); Potassium 4.3 mmol/L (3.3-5.1); Sodium 142 mmol/L (135-145); Total Protein 6.9 g/dL (6.5-8.0); Triglycerides 168 mg/dL (<150)
[2023-10-15 10:50] LABS: Vitamin D 25-OH Total 38.4 ng/mL (>30)
== END 2023-10-15 08:47 | disposition home or self-care (01) ==
LOC: HO.LAB 08:46
PROVIDERS: PCP Internal Medicine; Visit Provider Internal Medicine
DX: Z00.00 Encounter for general adult medical examination without abnormal findings (principal); E55.9 Vitamin D deficiency, unspecified; E78.5 Hyperlipidemia, unspecified
CPT/HCPCS: 36415; 80053; 80061; 82306

== ENCOUNTER 2023-10-31 11:06 | Outpatient (REF) | payer OTHER, SELFPAY | END 2023-10-31 11:07 | disposition home or self-care (01) | LOC: HO.MAMMO 11:06 | PROVIDERS: PCP Internal Medicine; Visit Provider Internal Medicine | DX: Z12.31 Encounter for screening mammogram for malignant neoplasm of breast (principal) | CPT/HCPCS: 77063; 77067 ==

== ENCOUNTER → 2023-10-31 11:15 | Outpatient (BNV) | payer OTHER, SELFPAY | PROVIDERS: PCP Internal Medicine; Visit Provider Radiology Diagnostic Radiology | DX: Z12.31 Encounter for screening mammogram for malignant neoplasm of breast (principal) | CPT/HCPCS: 77063; 77067 ==

== ENCOUNTER 2024-03-23 09:59 | Emergency (ER) | payer OTHER, SELFPAY ==
--- NOTE | ~2024-03-23 | XR_ITS ---
EXAMINATION: XR LUMBOSACRAL SPINE CLINICAL INFORMATION: fall, pain COMPARISON: Lumbar spine radiograph 11/23/2014 TECHNIQUE: AP and lateral views of the lumbar spine and lateral view of the lumbosacral junction. FINDINGS: Mild grade 1 anterolisthesis of L3 on L4 and L4 on L5. Moderate to severe degenerative disc disease at L5-S1 with joint space narrowing and subchondral sclerosis, progressed from 2014. Mild multilevel degenerative disc disease with loss of intervertebral disc height and marginal osteophytes. Advanced multilevel facet arthropathy. Vertebral body heights are maintained. Imaged portions of the sacroiliac joints are normal. The paraspinal soft tissues are unremarkable. XR/XR lumbar spine 2-3V IMPRESSION: 1. No acute fracture or traumatic subluxation. 2. Moderate to severe degenerative disc disease at L5-S1, progressed from 2014. Electronically signed by: Mayuri Low DO 03/23/2024 02:[address] [facility]
[2024-03-23 10:38] VITALS: BP 146/62; PULSE 68; RESP 20; TEMP 36.4; O2SAT 98; BMI 22.1
--- NOTE | 2024-03-23 12:15 | ED_ITS ---
HPI - General Adult General Chief complaint: Back Pain/Injury Stated complaint: Fall, back pain Time Seen by Provider: 03/23/24 12:14 Source: patient and family (daughter) Mode of arrival: ambulatory Limitations: language barrier History of Present Illness ED Provider: Jaquelin HPI narrative: Patient is an 79-year-old female presenting to the emergency department with complaint of lower back pain for the past week. States she was getting up to get off the couch when her ankle twisted and she fell backwards onto the couch hitting her lower back on the seat edge. Pain is worse on right side. Denies radiation of pain to legs. Denies saddle anesthesia or bowel or bladder incontinence, fevers. Denies any urinary symptoms. Has taken Tylenol without relief. Denies head strike or loss of consciousness. She is not anticoagulated. complaint: back pain Onset (ago): week(s) Location: back Severity: severe Quality: aching Pain Consistency: colicky Relieving factors: rest Exacerbating factors: movement Associated symptoms: denies other symptoms Treatments prior to arrival: other Related Data Previous Rx's ?Medication ?Instructions ?Recorded acetaminophen 650 mg 650 mg PO Q8H PRN pain #90 tabs 10/05/20 tablet,extended release (Tylenol Arthritis Pain) benzonatate 100 mg capsule 100 mg PO BID PRN cough 5 days #10 04/08/23 caps fluticasone propionate 50 1 spray intranasal DAILY #9.9 mL 07/23/23 mcg/actuation nasal spray,suspension (Flonase Allergy Relief) fluticasone furoate 50 1 inh inhalation DAILY 30 days #30 01/19/24 mcg/actuation blister powder for ea inhalation (Arnuity Ellipta) Ventolin HFA 90 mcg/actuation 2 puff inhalation Q6H PRN 01/28/24 aerosol inhaler (albuterol sulfate) shortness of breath or wheezing 30 days #18 grams atorvastatin 40 mg tablet 40 mg PO BEDTIME 90 days #90 tabs 01/28/24 tramadol 50 mg tablet 50 mg PO BID PRN pain 30 days #60 01/28/24 tabs albuterol sulfate 90 mcg/actuation 2 puff inhalation Q6H PRN 02/27/24 aerosol inhaler shortness of breath or wheezing 30 days #6.7 grams temazepam 30 mg capsule 30 mg PO BEDTIME PRN sleep 30 days 02/27/24 #30 caps lidocaine 5 % topical patch 1 patch topical DAILY #15 ea 03/23/24 Allergies Allergy/AdvReac Type Severity Reaction Status Date / Time aspirin [ASPIRIN] Allergy Intermediate VOMITING Verified 03/23/24 10:40 omeprazole Allergy Intermediate vomiting, Verified 03/23/24 10:40 abd pain gabapentin AdvReac Intermediate tiredness,n Verified 03/23/24 10:40 ightmares Review of Systems Review of Systems: As per HPI Yes all other systems are reviewed and are negative Constitutional: Constitutional: Reports as per HPI [facility] Past Medical History Medical History (Updated 03/23/24 @ 14:15 by Yas Hammer NP) Mild asthma Dyslipidemia Colon polyps Degenerative disc disease, lumbar GERD (gastroesophageal reflux disease) Osteoarthritis Insomnia Allergic rhinitis Mild asthma Right shoulder pain Hypovitaminosis D Trigeminal neuralgia Surgical History History of surgery History of bladder surgery History of esophagogastroduodenoscopy (EGD) H/O colonoscopy History of cataract surgery History of cholecystectomy History of tubal ligation Family History Family History Father Leukemia Mother Gallbladder cancer Maternal Aunt Breast cancer Chronic mental illness Son Liver failure Family/Other FH: mental illness Daughter No problems noted. Social History Social History Housing: Apartment Alcohol intake: never Patient Tobacco Use Status: Never used Tobacco e-Cigarette/Vaping Use: Never Used Second Hand Smoke Exposure: No Advance Directives: Yes Advance Directives Information Provided: Yes Advance Directives on File: No service: No Current occupational status: disabled Cognitive needs: No Hearing needs: No Vision needs: No Physical Exam ED Vital Signs: Vital Signs - 24 hr 03/23/24 10:38 Temperature 97.6 F Pulse Rate 68 Respiratory Rate 20 Blood Pressure 146/62 H Pulse Oximetry 98 Oxygen Delivery Method Room Air BMI result Body Mass Index 22.1 Vital signs have been reviewed and appear to be correct. Blood pressure normal. Heart rate normal. Respiratory rate normal. Temperature normal. Oxygen saturation normal. Const General: cooperative, healthy appearing and no acute distress Orientation/consciousness: oriented to person, oriented to place, oriented to time and patient oriented x3 Limitations: no limitations HENMT Head: Yes normocephalic and Yes atraumatic Ears: external ears normal General nose exam: Normal external nose present Face and sinus: Yes face symmetric Mouth: oropharynx normal and moist mucous membranes Throat: Yes uvula midline Eyes Pupils: Equal, round and reactive pupils present Neck Neck: Yes normal visual inspection and Yes supple Resp Effort & Inspection: normal respiratory effort and able to speak in complete sentences Auscultation: clear to auscultation bilaterally Cardio Rate: regular rate Rhythm: regular rhythm Heart sounds: S1 normal heart sound present and S2 normal heart sound present GI Palpation (GI): Soft to palpation and nontender Auscultation: normoactive bowel sounds General: Yes no CVA tenderness Back/Spine/Pelvis Back: no CVA tenderness Thoracic/Lumbar Spine: thoracic and lumbar spine normal to inspection, thoraco- lumbar ROM normal, pain with thoraco-lumbar ROM, paraspinal muscle tenderness on the right in the upper lumbar, No thoracic spinal tenderness, No lumbar spinal tenderness and straight leg raise positive right at 30 degrees Skin General skin exam: elasticity normal and turgor normal Neuro General: oriented to person, oriented to place, oriented to time, patient oriented x3, moves all extremities, no focal motor deficits and CN's II-XI intac t bilaterally Cranial nerves: Yes Equal, round and reactive pupils present Cognition (Neuro): normal cognition Extrem General: Yes full ROM, Yes no pedal edema and Yes no calf tenderness Psych Mental Status: mental status grossly normal Affect: normal affect Thought process: Normal thought process present Medications Administered Discontinued Medications Generic Name Dose Route Start Last Admin Trade Name Delgado PRN Reason Stop Dose Admin Acetaminophen 650 mg 03/23/24 13:43 03/23/24 13:59 Acetaminophen 325 Mg Tablet PO 03/23/24 13:44 650 mg ONCE ONE Administration Medical Decision Making Medical Decision Making [facility] Narrative: Patient is an 79-year-old female presenting to the emergency department with complaint of lower back pain for the past week. On exam patient is awake, A+Ox3, VS WNL, afebrile, normal neurological exam without focal deficits, physical exam findings as above. Given reported symptoms and physical exam findings, initial differential includes lumbar strain, vertebral fracture or subluxation, lumbar radiculopathy, degenerative disc disease, disc herniation, spinal stenosis, spondylosis. Do not suspect malignancy/mass, SEA, cauda equina/cord compression. X-ray lumbar spine notable for no acute fracture or subluxation, worsening moderate to severe degenerative disc disease. My interpretation is in agreement with the radiologist's interpretation. Patient and daughter updated on results and all questions answered. Differential Diagnosis Differential Diagnoses: The differential diagnosis associated with the presentation includes as per [facility] Admission/Observation Consideration of admission/observation: Escalation of care including admission/observation considered Patient would have been admitted to the hospital had their work up had any findings where hospital admission was appropriate and their clinical presentation warranted hospital admission. Independent Interpretation I performed an independent interpretation of an: Plain X-Ray Interpretation: X-ray lumbar spine notable for no acute fracture or subluxation, worsening moderate to severe degenerative disc disease. Radiology Impression Discussion of test interpretation with radiology: I have reviewed the radiologist's reading. Radiologist Impression: XR/XR lumbar spine 2-3V IMPRESSION: 1. No acute fracture or traumatic subluxation. 2. Moderate to severe degenerative disc disease at L5-S1, progressed from 2015. Independent Historian Clinical information obtained from an independent historian. History obtained from or confirmed by: Other (daughter ) External Record Review External record reviewed: Inpatient record, Office record and Outpatient record Discharge Plan Discharge Clinical Impression: Strain of lumbar region, DDD (degenerative disc disease), lumbar Patient Disposition: Home, Self-Care Instructions: Acute Low Back Pain (ED), Degenerative Disc Disease (ED) Additional Instructions: You were evaluated in the emergency department today for back pain. Your evaluation did not show signs of medical conditions requiring emergent intervention at this time. We recommended that you use ibuprofen or Tylenol per package directions every 6 hours as needed for pain. If necessary, you can alternate these medications so that you take one medication every 3 hours. For instance, at noon take ibuprofen, then at 3:00 p.m. take Tylenol, then at 6:00 p.m. take ibuprofen. You have been prescribed 5% topical lidocaine patches which you can wear for up to 12 hours in a 24 hour period. Do not apply heat directly over the patches. You are being referred to Dr. Jalloh, neuro spine, as well as pain management. Call the office to schedule an appointment. Please schedule an appointment for follow-up with your primary care physician this week for further evaluation of your symptoms. Return to the emergency department if you experience worsening back pain, difficulty walking, fevers, numbness, tingling, incontinence, groin numbness or tingling, or any other concerning symptoms. Prescriptions: New lidocaine 5 % adhesive patch,medicated 1 patch topical DAILY Qty: 15 0RF Rx Instructions: leave on most painful area for up to 12 hrs No Action acetaminophen [Tylenol Arthritis Pain] 650 mg tablet extended release 650 mg PO Q8H PRN (Reason: pain) Qty: 90 5RF fluticasone propionate [Flonase Allergy Relief] 50 mcg/actuation spray,suspension 1 spray intranasal DAILY Qty: 9.9 11RF Rx Instructions: administer into each nostril Arnuity Ellipta 50 mcg/actuation blister with device 1 inh inhalation DAILY 30 Days Qty: 30 2RF atorvastatin 40 mg tablet 40 mg PO BEDTIME 90 Days Qty: 90 1RF tramadol 50 mg tablet 50 mg PO BID PRN (Reason: pain) 30 Days Qty: 60 0RF albuterol sulfate [Ventolin HFA] 90 mcg/actuation HFA aerosol inhaler 2 puff inhalation Q6H PRN (Reason: shortness of breath or wheezing) 30 Days Qty: 18 1RF albuterol sulfate 90 mcg/actuation HFA aerosol inhaler 2 puff inhalation Q6H PRN (Reason: shortness of breath or wheezing) 30 Days Qty: 6.7 6RF temazepam 30 mg capsule 30 mg PO BEDTIME PRN (Reason: sleep) 30 Days Qty: 30 0RF benzonatate 100 mg capsule 100 mg PO BID PRN (Reason: cough) 5 Days Qty: 10 0RF Referrals: Hansel Clark MD [Physician] - 1 week Tera Jalloh MD, PhD [Physician] - 1 week (worsening DDD) Print Language: Welsh
[2024-03-23] MEDS: Acetaminophen 325 MG TABLET 650 MG PO (13:59)
[2024-03-23 14:31] VITALS: BP 141/62; PULSE 65; RESP 20; TEMP 36.4; O2SAT 98
== END 2024-03-23 14:32 | disposition home or self-care (01) ==
PROVIDERS: Emergency Provider Emergency Medicine; PCP Internal Medicine
DX: S39.012A Strain of muscle, fascia and tendon of lower back, initial encounter (principal); W19.XXXA Unspecified fall, initial encounter; Y93.9 Activity, unspecified; Y92.9 Unspecified place or not applicable; Y99.9 Unspecified external cause status
CPT/HCPCS: 72100; 99283

== ENCOUNTER 2024-04-06 09:41 | Outpatient (AMB) | payer OTHER, SELFPAY ==
[2024-04-06 09:47] VITALS: BP 110/64; PULSE 83; O2SAT 96; BMI 27.1
--- NOTE | 2024-04-06 09:47 | MHC.OFFVIS ---
Vital Signs 04/06/24 09:47 Height 5 ft 3 in Weight 152 lb 12.485 oz BMI 27.1 BP 110/64 Blood Pressure Location Lt brachial Position Sitting Pulse 83 Pulse Source Pulse Oximeter Pulse Oximetry (%) 96 Oxygen Delivery Method Room Air Intake Visit Reasons: joint pain Intake Note: Patient last seen by Doctor Saul Martin on 01/17/22. Presents today for joint pain follow up. Patient states she is in a lot of pain in hips and shoulders, for the past month, patient states it's been severe. Allergies aspirin [ASPIRIN] Allergy (Intermediate, Verified 04/06/24 09:50) VOMITING omeprazole Allergy (Intermediate, Verified 04/06/24 09:50) vomiting, abd pain gabapentin Adverse Reaction (Intermediate, Verified 04/06/24 09:50) tiredness,nightmares Medication List - Last Reconciled 04/06/24 by Saul Martin MD acetaminophen ER (Tylenol Arthritis Pain) 650 mg PO Q8H PRN albuterol sulfate 90 mcg/actuation 2 puffs inhalation Q6H PRN 30 days atorvastatin 40 mg PO BEDTIME 90 days benzonatate 100 mg PO BID PRN 5 days fluticasone furoate 50 mcg/actuation (Arnuity Ellipta) 1 inh inhalation DAILY 30 days fluticasone propionate 50 mcg/actuation (Flonase Allergy Relief) 1 spray intranasal DAILY lidocaine 5% 1 patch topical DAILY temazepam 30 mg PO BEDTIME PRN 30 days tramadol 50 mg PO BID PRN 30 days Ventolin HFA 90 mcg/actuation (albuterol sulfate) 2 puffs inhalation Q6H PRN 30 days NS HPI Comments Details: This is an 79-year-old female with generalized osteoarthritis who presents for follow-up. She went to the emergency room a few days ago due to significant right lower back pain that shoots down her right lower extremity. In addition she continues to have chronic right shoulder pain. She was last here 01/2022 at that time right shoulder was injected with Kenalog. Per patient the injection helped her for 1 year [facility] Medical History Mild asthma Dyslipidemia Colon polyps Degenerative disc disease, lumbar GERD (gastroesophageal reflux disease) Osteoarthritis Insomnia Allergic rhinitis Mild asthma Right shoulder pain Hypovitaminosis D Trigeminal neuralgia Surgical History History of surgery History of bladder surgery History of esophagogastroduodenoscopy (EGD) H/O colonoscopy History of cataract surgery History of cholecystectomy History of tubal ligation Family History Father Leukemia Mother Gallbladder cancer Maternal Aunt Breast cancer Chronic mental illness Son Liver failure Family/Other FH: mental illness Daughter No problems noted. Social History Housing: Apartment Alcohol intake: never Patient Tobacco Use Status: Never used Tobacco e-Cigarette/Vaping Use: Never Used Second Hand Smoke Exposure: No service: No Current occupational status: disabled Cognitive needs: No Hearing needs: No Vision needs: No Review of Systems Musc Reports back pain, Reports arthralgias and Reports radiating pain into limb Physical Exam Vital Signs: Last Vital Signs Pulse 83 04/06/24 09:47 BP 110/64 04/06/24 09:47 Pulse Ox 96 04/06/24 09:47 Oxygen Delivery Method Room Air 04/06/24 09:47 BMI result Body Mass Index 27.1 Const General: cooperative, healthy appearing and comfortable Nutritional Appearance: well nourished and overweight Orientation/consciousness: patient oriented x3 Limitations: no limitations HEENT Head: Yes normocephalic and Yes atraumatic Resp Effort & Inspection: normal respiratory effort and able to speak in complete sentences Neuro General: patient oriented x3 Extrem Other: osteoarthritic changes of her hands with no synovitis Significantly limited ROM of RT shoulder with tenderness to palpation all over Right lower lumbar paraspinal muscle tenderness Positive straight leg raise test on the right Office Procedures AMB Joint Injection/Aspiration Joint Injection/Aspiration Primary Site: right shoulder Prep: site was prepped using sterile technique Injected: 40 mg of, Kenalog, with 1 mL of, 1% plain lidocaine and in the subcromial space Approach Used: posterolateral Procedure: The patient tolerated the procedure well Coding Details: With patient's consent. The right shoulder was prepped ChloraPrep and alcohol. The subacromial space was injected with 40 mg of triamcinolone and 1 cc of lidocaine. Patient tolerated the procedure well no apparent immediate side effects. 38889 - Large joint Procedure code (CPT) selection complete Office Meds Kenalog 40 mg/mL suspension for injection Performing Provider: Saul Martin MD Performing Location[place] [facility] Administered by: Saul Martin MD on 04/06/24 10:12 Dose Route Admin Location Dispensed Lot Number Expiration Date [facility] [employer] 40 mg intra-articular Right shoulder 1 mL [id number] 10/12/25 [address]-6 [employer] lidocaine (PF) 10 mg/mL (1 %) injection solution Performing Provider: Saul Martin MD Performing Location: [facility] Administered by: Saul Martin MD on 04/06/24 10:12 Dose Route Admin Location Dispensed Lot Number Expiration Date [facility] [employer] In[employer] 10 mg intra-articular Right shoulder 2 mL [id number] 07/13/26 12763-414-18 [facility] Assessment & Plan Assessment & Plan (1) Primary osteoarthritis, right shoulder: Code(s): M19.011 - Primary osteoarthritis, right shoulder Category: Medical Plan: This is an 79-year-old female with right shoulder osteoarthritis who presents for follow-up. Her last injection here in clinic was 01/2022. Per patient it provides about 1 year relief. Today patient requesting another injection. With patient's consent, right shoulder was injected with Kenalog. Follow-up as needed (2) Lumbar radiculopathy, right: Code(s): M54.16 - Radiculopathy, lumbar region Category: Medical Plan: has an appointment with pain management in a few days Plan I spent 15 minutes reviewing patient's chart, evaluating patient, counseling patient and documenting in the chart Orders: Orders AMB Joint Injection/Aspiration Today M19.011 - Primary osteoarthritis, right shoulder Medications: New Kenalog (triamcinolone acetonide) 40 mg intra-articular ONCE 1 mL 0RF NS M19.011 - Primary osteoarthritis, right shoulder lidocaine (PF) 10 mg intra-articular ONCE 2 mL 0RF M19.011 - Primary osteoarthritis, right shoulder Coding Level of Care Code Est Pt Level 3 (03856) Diagnoses Primary osteoarthritis, right shoulder M19.011 Lumbar radiculopathy, right M54.16 CPT Codes Coding - Large joint: 18362 - Large joint ([id number])
== END 2024-04-06 10:12 | disposition home or self-care (01) ==
PROVIDERS: PCP Internal Medicine; Visit Provider Student in an Organized Health Care Education/Training Program
DX: M19.011 Primary osteoarthritis, right shoulder (principal); M54.16 Radiculopathy, lumbar region
CPT/HCPCS: 20610; 99213

== ENCOUNTER → 2024-04-06 09:41 | Outpatient (BNVA) | payer OTHER, SELFPAY | PROVIDERS: PCP Internal Medicine; Visit Provider Student in an Organized Health Care Education/Training Program | DX: M19.011 Primary osteoarthritis, right shoulder (principal); M54.16 Radiculopathy, lumbar region | CPT/HCPCS: 20610; 99212; J2003; J3300 ==

== ENCOUNTER 2024-04-21 10:47 | Outpatient (AMB) | payer OTHER, SELFPAY ==
[2024-04-21 11:03] VITALS: BP 143/64; PULSE 66; O2SAT 97; BMI 26.6
--- NOTE | 2024-04-21 11:03 | MHC.OFFVIS ---
Vital Signs 04/21/24 11:03 Height 5 ft 3 in Weight 150 lb BMI 26.6 BP 143/64 H Blood Pressure Location Lt brachial Position Sitting Pulse 66 Pulse Source Pulse Oximeter Pulse Oximetry (%) 97 Oxygen Delivery Method Room Air Intake Visit Reasons: Low back pain Ethylene Oxide Panelboard Operator Services: Ethylene Oxide Panelboard Operator Offered & Declined Ethylene Oxide Panelboard Operator Name: Daughter Genevieve interpreted Information Interpreted: non-clinical & clinical Allergies aspirin [ASPIRIN] Allergy (Intermediate, Verified 04/21/24 11:04) VOMITING omeprazole Allergy (Intermediate, Verified 04/21/24 11:04) vomiting, abd pain gabapentin Adverse Reaction (Intermediate, Verified 04/21/24 11:04) tiredness,nightmares Medication List - Last Reconciled 04/21/24 by Faith Moreno, BUSINESS AND FINANCIAL COUNSEL acetaminophen ER (Tylenol Arthritis Pain) 650 mg PO Q8H PRN albuterol sulfate 90 mcg/actuation 2 puffs inhalation Q6H PRN 30 days atorvastatin 40 mg PO BEDTIME 90 days benzonatate 100 mg PO BID PRN 5 days fluticasone furoate 50 mcg/actuation (Arnuity Ellipta) 1 inh inhalation DAILY 30 days fluticasone propionate 50 mcg/actuation (Flonase Allergy Relief) 1 spray intranasal DAILY lidocaine 5% 1 patch topical DAILY temazepam 30 mg PO BEDTIME PRN 30 days tramadol 50 mg PO BID PRN 30 days Ventolin HFA 90 mcg/actuation (albuterol sulfate) 2 puffs inhalation Q6H PRN 30 days NS HPI Comments Details: Jose Daniel is very pleasant 79 years old female who presents today in my office with her daughter who was her utility plant operative. She complains on lower back pain mostly on the right side with radiation of the pain down the right lower extremity to the level just below the knee but not below that level. She reported that the pain started in January of 2024. She stated that her pain started after a fall. She fell at home. She reports that walking and sitting aggravate her pain while laying down make her pain better. Flexing forward aggravate her pain more than flexing backwards. She can not sleep normally because of her pain she can not do activities of daily living. She can take care of herself she can not function normally. She is retired individual. She is self mobile but she is moving very slowly. She reports that called and weather changes aggravate her pain. She denies any thing which would be helpful for her pain. She was prescribed tramadol and it relieves her pain for few hours only. In terms of tissue damage he reports her pain as stabbing, lancinating, sharp, cutting, lacerating, pinching, cramping, crushing sensation. She never had any physical therapy for this pain. She never had any chiropractic manipulations. She had an x-ray done at [facility] results of which dictated as below. She had injections in his shoulder in the past but Nevro related to her lower back. Her past medical history significant for asthma and arthritis. She did not have any surgical history, she denies smoking cigarettes she denies drinking alcohol she drinks caffeinated beverages including coffee she denies recreational drugs. [facility] Medical History Mild asthma Dyslipidemia Colon polyps Degenerative disc disease, lumbar GERD (gastroesophageal reflux disease) Osteoarthritis Insomnia Allergic rhinitis Mild asthma Right shoulder pain Hypovitaminosis D Trigeminal neuralgia Surgical History History of surgery History of bladder surgery History of esophagogastroduodenoscopy (EGD) H/O colonoscopy History of cataract surgery History of cholecystectomy History of tubal ligation Family History Father Leukemia Mother Gallbladder cancer Maternal Aunt Breast cancer Chronic mental illness Son Liver failure Family/Other FH: mental illness Daughter No problems noted. Social History Housing: Apartment Alcohol intake: never Patient Tobacco Use Status: Never used Tobacco e-Cigarette/Vaping Use: Never Used Second Hand Smoke Exposure: No service: No Current occupational status: disabled Cognitive needs: No Hearing needs: No Vision needs: No Review of Systems Const All systems reviewed & are unremarkable except as noted in HPI and below ENT Reports Normal hearing present Neuro Reports Normal hearing present, Denies Abnormal speech present and Denies Sensory deficit (Neuro) Physical Exam Vital Signs: Last Vital Signs Pulse 66 04/21/24 11:03 BP 143/64 H 04/21/24 11:03 Pulse Ox 97 04/21/24 11:03 Oxygen Delivery Method Room Air 04/21/24 11:03 BMI result Body Mass Index 26.6 Const General: no acute distress Nutritional Appearance: well nourished Orientation/consciousness: patient oriented x3 Limitations: physical limitations and ambulation with cane Eyes General: appearance normal, both eyes and all related structures Pupils: Equal, round and reactive pupils present EOM: EOMs intact bilaterally Neck Neck: Yes full ROM Chest Chest palpation & inspection: normal inspection of the chest Resp Effort & Inspection: normal respiratory effort, able to speak in complete sentences, normal respiratory pattern, no audible wheezes and no cough Cardio Jugular venous distension: no JVD GI Inspection: Yes normal to inspection Back/Spine/Pelvis Other: No tenderness on palpation in paraspinal spinal region of the upper lumbar spine however reports tenderness on palpation in the projection of the lower lumbar spine. Tenderness on palpation in projection of the right sacroiliac joint. SLR is negative bilaterally also some pain elicited in the lower extremities while performing SLR. Dorsiflexion of the foot wet maximal SLR does not aggravate her pain. Lizandro test is positive on the right. Gaenslen test is positive on the right. Pelvic compression and pelvic distraction tests are positive on the right. Thigh thrust test is positive on the right. Loading test is equivocal on the right and negative on the left. Neuro General: patient oriented x3 and gait normal Cranial nerves: Yes CN's II-XII intact bilaterally, Yes Equal, round and reactive pupils present, Yes Normal hearing present and Yes Ability to bilaterally elevate shoulders present Speech: No Abnormal speech present Gait exam (Neuro): Normal gait present Motor exam (neuro): 5/5 motor strength present throughout Sensory Exam: No Sensory deficit (Neuro) Extrem General: No pedal edema Psych Speech and movement: Normal speech and movement present Affect: normal affect Attitude: cooperative Thought process: Normal thought process present Thought content: Normal thought content present Insight: Good insight present (Psych) Judgement: Good judgement present (Psych) Results Reviewed Results Reviewed: X-ray lumbar sacral spine. 03/23/2024. Findings: Mild grade 1 anterolisthesis of L3 on L4 and L4 on L5. Moderate to severe degenerative disc disease at L5-S1 with joint space narrowing and subchondral sclerosis progressed from 2015. Mild multilevel degenerative disc disease with loss of intervertebral disc height and marginal osteophytes. Advanced multilevel facet arthropathy. Vertebral body heights are maintained. Imaged portion of the sacroiliac joints are normal. Paraspinal soft tissues are unremarkable. Assessment & Plan Assessment & Plan (1) Spondylosis of lumbar region without myelopathy or radiculopathy: Code(s): M47.816 - Spondylosis without myelopathy or radiculopathy, lumbar region Category: Medical (2) Sacroiliitis: Code(s): M46.1 - Sacroiliitis, not elsewhere classified Category: Medical (3) Sacroiliac joint dysfunction of right side: Code(s): M53.3 - Sacrococcygeal disorders, not elsewhere classified Category: Medical Plan Although on images most prominent changes are observable in the lumbar spine with equivocal loading test and multiple tests positive for right sacroiliac joint pathology I decided to schedule this patient for sacroiliac joint injection diagnostic. I explained to the patient risks and benefits of the procedure. Her daughter was helpful with interpreting the conversation. I also will schedule her for physical therapy. She is very frail 79 years old and it is hard for her to get out of the house. Possibility exists that her visiting nurses we will be able to schedule her for physical therapy at home and then she would need not to go out of the house to receive physical therapy. Alternatively she would need to go to [facility] [place] to get engaged into physical therapy. If her sacroiliac joint injection would not be indicative of the sacroiliac joint problem on the right I will schedule her for diagnostic medial branch blocks to address facet joints in the lumbar spine. Orders: Orders PT Evaluation and Treatment Today M46.1 - Sacroiliitis, not elsewhere classified, M47.816 - Spondylosis without myelopathy or radiculopathy, lumbar region, M53.3 - Sacrococcygeal disorders, not elsewhere classified Coding Level of Care Code New Pt Level 3 (08963) Diagnoses Spondylosis of lumbar region without myelopathy or radiculopathy M47.816 Sacroiliitis M46.1 Sacroiliac joint dysfunction of right side M53.3
== END 2024-04-21 11:52 | disposition home or self-care (01) ==
PROVIDERS: PCP Internal Medicine; Visit Provider Anesthesiology
DX: M47.816 Spondylosis without myelopathy or radiculopathy, lumbar region (principal); M46.1 Sacroiliitis, not elsewhere classified; M53.3 Sacrococcygeal disorders, not elsewhere classified
CPT/HCPCS: 99203

== ENCOUNTER → 2024-04-21 10:47 | Outpatient (BNVA) | payer OTHER, SELFPAY | PROVIDERS: PCP Internal Medicine; Visit Provider Anesthesiology | DX: M47.816 Spondylosis without myelopathy or radiculopathy, lumbar region (principal); M46.1 Sacroiliitis, not elsewhere classified; M53.3 Sacrococcygeal disorders, not elsewhere classified | CPT/HCPCS: 99202 ==

== ENCOUNTER 2024-05-13 09:19 | Outpatient (AMB) | payer OTHER, SELFPAY ==
[2024-05-13 09:39] VITALS: BP 118/60; PULSE 68; TEMP 36.2; O2SAT 98; BMI 27.0
--- NOTE | 2024-05-13 09:39 | A.OFFPC_ITS ---
Vital Signs 05/13/24 09:39 Height 5 ft 3 in Weight 152 lb 4 oz BMI 27.0 BP 118/60 Blood Pressure Location Lt brachial Position Sitting Pulse 68 Pulse Source Pulse Oximeter Temp 97.1 F Temp Source Temporal Artery Scan Pulse Oximetry (%) 98 Oxygen Delivery Method Room Air Intake Visit Reasons: lumbar ddd, insomnia Loadmaster Required: Yes Loadmaster Language: Tin Cutter Name: Sarah Gonzales MD Information Interpreted: non-clinical & clinical Accompanied by: Daughter Allergies aspirin [ASPIRIN] Allergy (Intermediate, Verified 05/13/24 10:08) VOMITING omeprazole Allergy (Intermediate, Verified 05/13/24 10:08) vomiting, abd pain gabapentin Adverse Reaction (Intermediate, Verified 05/13/24 10:08) tiredness,nightmares Medication List - Last Reconciled 05/13/24 by Sarah Gonzales MD acetaminophen ER (Tylenol Arthritis Pain) 650 mg PO Q8H PRN albuterol sulfate 90 mcg/actuation 2 puffs inhalation Q6H PRN 30 days atorvastatin 40 mg PO BEDTIME 90 days benzonatate 100 mg PO BID PRN 5 days fluticasone furoate 50 mcg/actuation (Arnuity Ellipta) 1 inh inhalation DAILY 30 days fluticasone propionate 50 mcg/actuation (Flonase Allergy Relief) 1 spray intranasal DAILY lidocaine 5% 1 patch topical DAILY temazepam 30 mg PO BEDTIME PRN 30 days tramadol 50 mg PO BID PRN 30 days Ventolin HFA 90 mcg/actuation (albuterol sulfate) 2 puffs inhalation Q6H PRN 30 days NS Tobacco use date assessed: 05/13/24 Fall risk assessment: No Falls in past year Last assessed Fall Risk: 05/13/24 Dental Screening Dental Screen Date: 05/13/24 Did you have a dental visit in the last 12 months?: Yes Did you have a dental problem in the last 6 months where you did not have access to dental care?: No Was dental information given to patient?: Patient has dentist HPI HPI Comments History of Present Illness Details The patient is an 79-year-old female presenting with back pain and insomnia accompanied by daughter. The back pain is noted to be severe enough to affect her mobility, making it difficult for her to stand and walk. She reports that the shoulder pain persists despite some improvement with an injection, which was administered in her arm but does improve. The patient is concerned about the possibility of spinal cord involvement due to the pain and possible complications from further injections. In addition to the back pain, she is experiencing difficulty sleeping and uses Temazepam, 30 mg, for insomnia. She intermittently utilizes Tramadol for pain management. Has asthma and needs rescue inhaler to be refill. Also has dyslipidemia on statins. [facility] Medical History Mild asthma Dyslipidemia Colon polyps Degenerative disc disease, lumbar GERD (gastroesophageal reflux disease) Osteoarthritis Insomnia Allergic rhinitis Mild asthma Right shoulder pain Hypovitaminosis D Trigeminal neuralgia Surgical History History of surgery History of bladder surgery History of esophagogastroduodenoscopy (EGD) H/O colonoscopy History of cataract surgery History of cholecystectomy History of tubal ligation Family History Father Leukemia Mother Gallbladder cancer Maternal Aunt Breast cancer Chronic mental illness Son Liver failure Family/Other FH: mental illness Daughter No problems noted. Social History Housing: Apartment Alcohol intake: never Patient Tobacco Use Status: Never used Tobacco e-Cigarette/Vaping Use: Never Used Second Hand Smoke Exposure: No service: No Current occupational status: disabled Cognitive needs: No Hearing needs: No Vision needs: No Questionnaire PHQ-9 Over the last 2 weeks, how often have you been bothered by any of the following problems? 1. Little interest or pleasure in doing things: not at all 2. Feeling down, depressed, or hopeless: not at all 3. Trouble falling or staying asleep, or sleeping too much: not at all 4. Feeling tired or having little energy: not at all 5. Poor appetite or overeating: not at all 6. Feeling bad about yourself - or that you are a failure or have let yourself or your family down: not at all 7. Trouble concentrating on things, such as reading the newspaper or watching television: not at all 8. Moving or speaking so slowly that other people could have noticed. Or the opposite - being so fidgety or restless that you have been moving around a lot more than usual: not at all 9. Thoughts that you would be better off or of hurting yourself in some way: not at all Total score: 0 Depression Screening Interpretation: Negative Depression Screening Done: Yes 65518 - PHQ-9 Billing: Yes Source: Developed by Drs. Alpesh Carter, Maritza Richards, Mitchel Head and colleagues, with an educational helga from [employer]. Thrive Questionnaire Date Thrive assessed: 05/13/24 I am a: Patient What is your living situation today?: I have a steady place to live Within the past 12 months, did the food you bought not last and you didn't have the money to get more?: Never true Within the past 12 months, did you worry whether your food would run out before you got money to buy more?: Never true Do you have trouble paying for medicines?: No Do you have trouble getting transportation to medical appointments?: No Do you have trouble paying your heating and electricity bill?: No Do you have trouble taking care of your child, family member or friend?: No Do you have trouble with day-to-day activities such as bathing, preparing meals, shopping, managing finances, etc.?: No Are you currently unemployed and looking for a job?: No Are you interested in more education?: No Please select the resources that you would like help with: None Currently or been in a relationship where the following occur: No concerns reported THRIVE Score: 0 AUDIT C Alcohol Use Questionnaire (AUDIT-C) 1. How often do you have a drink containing alcohol?: Never 3. How often do you have six or more drinks on one occasion?: Never Total Score: 0 Score Reviewed/Action Taken: No JAMEEL-7 AMB Questionnaire JAMEEL-7 Date JAMEEL - 7 assessed: 05/13/24 Feeling nervous, anxious, or on edge: 0 = Not at all Not being able to stop or control worryin = Not at all Worrying too much about different things: 0 = Not at all Trouble relaxin = Not at all Being so restless that it is hard to sit still: 0 = Not at all Becoming easily annoyed or irritable: 0 = Not at all Feeling afraid as if something awful might happen: 0 = Not at all Total JAMEEL-7 score (0-4 normal; 5-9 mild; 10-14 moderate; 15-21 severe): 0 Source: Developed by Drs. Alpesh Carter, Maritza Richards, Mitchel Head and colleagues, with an educational helga from [employer]. JAMEEL-7 Assessment Billing JAMEEL-7 Assessment Tool: JAMEEL-7 Assessment 42749 Review of Systems Const All systems reviewed & are unremarkable except as noted in HPI and below Card Denies chest pain at rest, Denies chest pain with activity, Denies edema, Denies irregular heart rhythm, Denies claudication, Denies dyspnea, Denies dyspnea on exertion, Denies orthopnea, Denies paroxysmal nocturnal dyspnea and Denies slow heart rate Resp Denies cough, Denies dyspnea and Denies dyspnea on exertion Musc Denies abnormal gait, Denies atrophy, Denies deformity and Denies limited range of motion Skin/Breast Denies bleeding lesions, Denies changing lesions and Denies rash Neuro Denies abnormal gait, Denies behavioral changes and Denies lack of coordination Psych Denies behavioral changes Physical exam (Primary Care) Vital Signs: Last Vital Signs Temp 97.1 F 05/13/24 09:39 Pulse 68 05/13/24 09:39 BP 118/60 05/13/24 09:39 Pulse Ox 98 05/13/24 09:39 Oxygen Delivery Method Room Air 05/13/24 09:39 BMI result Body Mass Index 27.0 Tobacco/Smoking Status: Tobacco use Status Tobacco use date assessed 05/13/24 05/13/24 09:44 Patient Tobacco Use Status Never used Tobacco 05/13/24 09:44 e-Cigarette/Vaping Use Never Used 05/13/24 09:44 PHQ-9: PHQ-9 Score PHQ-9: Total score 0 05/13/24 10:26 Depression Screening Interpretation: Negative Thrive Assessment: Date of Thrive Assessment Date Thrive assessed 05/13/24 05/13/24 09:44 Currently or been in a relationship where the following occur: No concerns reported Resp Effort & Inspection: normal respiratory effort Auscultation: clear to auscultation bilaterally Cardio Jugular venous distension: no JVD Rate: regular rate Rhythm: regular rhythm Heart sounds: S1 normal heart sound present and S2 normal heart sound present Office Procedures Flu Questionnaire Does the patient have a severe egg allergy?: No Immunizations Fluarix Triv [id number] (PF) 45 mcg (15 mcg x 3)/0.5 mL IM syringe Performing Provider: Sarah Gonzales MD [place] [facility] [place] [facility] Documented (not given) by: ISAIAS Singh on 05/13/24 10:26 Reason Not Given: Patient Refused Coding Level of Care Code Est Pt Level 4 (27151) Complex EM visit Add On G2211 Diagnoses Sacroiliac joint dysfunction of right side M53.3 Moderate asthma J45.909 Pure hypercholesterolemia E78.00 Primary insomnia F51.01 Insomnia type: primary Additional Codes JAMEEL-7 Assessment Billing - JAMEEL-7 Assessment Tool: JAMEEL-7 Assessment 45028 ([id number]) PHQ-9 - 00366 - PHQ-9 Billing: Yes ([id number]) Time Spent (min) 23 Assessment & Plan Assessment & Plan (1) Sacroiliac joint dysfunction of right side: Code(s): M53.3 - Sacrococcygeal disorders, not elsewhere classified Category: Medical (2) Moderate asthma: Code(s): J45.909 - Unspecified asthma, uncomplicated Category: Medical (3) Pure hypercholesterolemia: Code(s): E78.00 - Pure hypercholesterolemia, unspecified Category: Medical (4) Insomnia: Code(s): G47.00 - Insomnia, unspecified Category: Medical Qualifiers: Insomnia type: primary Qualified Code(s): F51.01 - Primary insomnia Plan - Continue using Temazepam 30 mg for insomnia as currently managed. - Consider ongoing management of back pain with non-steroidal anti-inflammatory drugs, physical therapy, or other interventions as needed. - Monitor the effectiveness of prior injections and evaluate the need for further interventions. - Discuss and educate the patient on the potential risks and benefits of injections for back pain management. - Schedule follow-up lab work for October and discuss results in the subsequent visit. Patient was informed and verbally consented to the use of an ambient scribe for clinic note documentation during this visit. I discussed with the patient the nature of her back pain and available management options, including the use of current medications and potential further injections if necessary. I reassured her regarding her concerns about spinal cord involvement and other complications from injections, emphasizing that the risk of such complications is low when performed properly. I reiterated that her body has previously reacted well to injections in the shoulder, suggesting similar treatment efficacy. Additionally, I emphasized the importance of maintaining her regular regimen of medications and discussed plans for follow-up lab work in October to monitor her condition. Orders: Orders Lipid Panel 6 Months E78.5 - Hyperlipidemia, unspecified Vitamin D 25-OH Total 6 Months E55.9 - Vitamin D deficiency, unspecified Comprehensive [place]. Panel Fast 6 Months M46.1 - Sacroiliitis, not elsewhere classified Influenza [id number] Immunization Today Z23 - Encounter for immunization Medications: Refilled Ventolin HFA 90 mcg/actuation (albuterol sulfate) 2 puffs inhalation Q6H 30 days PRN 18 grams 1RF shortness of breath or wheezing NS Patient Instructions: - Continue taking Temazepam 30 mg before bedtime for sleep as needed. - Use Tramadol as prescribed for pain management. - Attend the appointment for lab tests in October. - Maintain warmth when going outside to prevent exacerbation of symptoms. - Seek immediate care if new symptoms develop or current symptoms worsen, especially if there's increased difficulty in walking or unusual new pain.
== END 2024-05-13 10:22 | disposition home or self-care (01) ==
PROVIDERS: PCP Internal Medicine; Visit Provider Internal Medicine
DX: M53.3 Sacrococcygeal disorders, not elsewhere classified (principal); J45.909 Unspecified asthma, uncomplicated; E78.00 Pure hypercholesterolemia, unspecified; F51.01 Primary insomnia; Z23 Encounter for immunization

== ENCOUNTER → 2024-05-13 09:19 | Outpatient (BNVA) | payer OTHER, SELFPAY | PROVIDERS: PCP Internal Medicine; Visit Provider Internal Medicine | DX: M53.3 Sacrococcygeal disorders, not elsewhere classified (principal); J45.909 Unspecified asthma, uncomplicated; E78.00 Pure hypercholesterolemia, unspecified; F51.01 Primary insomnia | CPT/HCPCS: 90471; 96127; 99212 ==

== ENCOUNTER 2024-07-06 06:30 | Outpatient (REF) | payer OTHER, SELFPAY ==
--- NOTE | ~2024-07-06 | FL_ITS ---
EXAMINATION: FL GUIDANCE ONLY HISTORY: M53.3 - Sacrococcygeal disorders, not elsewhere classified COMPARISON: None available. TECHNIQUE: Fluoroscopy time: 0.1 minutes. Cumulative Dose: 1.20 mGy. DAP: 0.0119 mGym2 Images: 2. FINDINGS: Images demonstrate a needle and contrast material in the region of the right sacroiliac joint. FL/FL guidance in treatment room IMPRESSION: Fluoroscopy during procedure. Please see procedure report for additional information. Electronically signed by: Alpesh Wen MD 07/07/2024 07:03 AM EDT
== END 2024-07-06 06:31 | disposition home or self-care (01) ==
LOC: CF 06:30
PROVIDERS: Visit Provider Anesthesiology
DX: M53.3 Sacrococcygeal disorders, not elsewhere classified (principal)
CPT/HCPCS: 27096; J2003; J2795; Q9967

== ENCOUNTER 2024-07-06 13:48 | Outpatient (AMB) | payer OTHER, SELFPAY ==
[2024-07-06 13:56] VITALS: BP 140/72; PULSE 70; O2SAT 97
--- NOTE | 2024-07-06 13:56 | A.OFFVIS_ITS ---
Vital Signs 07/06/24 13:56 07/06/24 14:32 BP 140/72 H 131/68 Blood Pressure Location Lt brachial Lt brachial Position Sitting Sitting Pulse 70 73 Pulse Source Pulse Oximeter Pulse Oximeter Pulse Oximetry (%) 97 98 Oxygen Delivery Method Room Air Room Air Comment Pre-Procedure Post-Procedure Intake Visit Reasons: RIGHT DIAGNOSTIC SIJ INJECTION Allergies aspirin [ASPIRIN] Allergy (Intermediate, Verified 05/13/24 10:08) VOMITING omeprazole Allergy (Intermediate, Verified 05/13/24 10:08) vomiting, abd pain gabapentin Adverse Reaction (Intermediate, Verified 05/13/24 10:08) tiredness,nightmares PFSH Medical History Mild asthma Dyslipidemia Colon polyps Degenerative disc disease, lumbar GERD (gastroesophageal reflux disease) Osteoarthritis Insomnia Allergic rhinitis Mild asthma Right shoulder pain Hypovitaminosis D Trigeminal neuralgia Surgical History History of surgery History of bladder surgery History of esophagogastroduodenoscopy (EGD) H/O colonoscopy History of cataract surgery History of cholecystectomy History of tubal ligation Family History Father Leukemia Mother Gallbladder cancer Maternal Aunt Breast cancer Chronic mental illness Son Liver failure Family/Other FH: mental illness Daughter No problems noted. Social History Housing: Apartment Alcohol intake: never Patient Tobacco Use Status: Never used Tobacco e-Cigarette/Vaping Use: Never Used Second Hand Smoke Exposure: No service: No Current occupational status: disabled Cognitive needs: No Hearing needs: No Vision needs: No Physical Exam Vital Signs: Last Vital Signs Pulse 73 07/06/24 14:32 BP 131/68 07/06/24 14:32 Pulse Ox 98 07/06/24 14:32 Oxygen Delivery Method Room Air 07/06/24 14:32 Assessment & Plan Assessment & Plan (1) Spondylosis of lumbar region without myelopathy or radiculopathy: Code(s): M47.816 - Spondylosis without myelopathy or radiculopathy, lumbar region Category: Medical (2) Sacroiliitis: Code(s): M46.1 - Sacroiliitis, not elsewhere classified Category: Medical (3) Sacroiliac joint dysfunction of right side: Code(s): M53.3 - Sacrococcygeal disorders, not elsewhere classified Category: Medical Plan Right diagnostic sacroiliac joint injection. Informed consent was thoroughly explained to the patient before the procedure.? The patient came to the operating room.? She was positioned prone on operating table with a pillow under her abdomen.? Time-out was performed delineating correct site and side of the procedure, nature of the injection, name and date of of the patient. The lower back and upper buttocks of the patient was prepped with ChloraPrep and draped with sterile utility towels.? C-arm was brought over the operating field the image of the right sacroiliac joint was demonstrated on the screen. Tilting machine contralateral to the left the anterior portion of sacroiliac joint was superimposed of the posterior portion of the sacroiliac joint. After that projection of the sacroiliac joint to the skin was injected with mixture of lidocaine 2 % and ropivacaine 0.5% to form a skin wheal. After that 22 gauge 3- 1/2 inch needle was inserted through the skin wheal and advanced to the sacroiliac joint. After that injection of the contrast was performed delineating intra-articular spread of the contrast. After that injection of the ropivacaine 0.5% 5 cc was performed into the joint. The needle was removed sterile Band-Aid was applied. Patient tolerated the procedure well. Orders: Orders FL guidance in treatment room 07/06/24 M53.3 - Sacrococcygeal disorders, not elsewhere classified Coding Level of Care Code Procedure Only Diagnoses Spondylosis of lumbar region without myelopathy or radiculopathy M47.816 Sacroiliitis M46.1 Sacroiliac joint dysfunction of right side M53.3
[2024-07-06 14:32] VITALS: BP 131/68; PULSE 73; O2SAT 98
== END 2024-07-06 14:34 | disposition home or self-care (01) ==
LOC: HO.PMCPRC 13:48
PROVIDERS: PCP Internal Medicine; Visit Provider Anesthesiology
DX: M46.1 Sacroiliitis, not elsewhere classified (principal); M53.3 Sacrococcygeal disorders, not elsewhere classified
CPT/HCPCS: 27096

== ENCOUNTER 2024-07-12 12:51 | Outpatient (AMB) | payer OTHER, SELFPAY ==
--- NOTE | 2024-07-12 12:53 | MHC.OFFVIS ---
Vital Signs 07/12/24 12:56 Height 5 ft 3 in Weight 148 lb BMI 26.2 BP 164/75 H Blood Pressure Location Lt brachial Position Sitting Respiration 16 Pulse 77 Pulse Source Pulse Oximeter Pulse Oximetry (%) 96 Oxygen Delivery Method Room Air Intake Visit Reasons: RIGHT DIAGNOSTIC SIJ INJECTION Forensic Photographer Required: Yes Forensic Photographer Services: Forensic Photographer Offered & Declined Forensic Photographer Name: Prefers daughter to translate Allergies aspirin [ASPIRIN] Allergy (Intermediate, Verified 07/12/24 12:57) VOMITING omeprazole Allergy (Intermediate, Verified 07/12/24 12:57) vomiting, abd pain gabapentin Adverse Reaction (Intermediate, Verified 07/12/24 12:57) tiredness,nightmares Medication List - Last Reconciled 07/12/24 by Aleida Yang LPN acetaminophen ER (Tylenol Arthritis Pain) 650 mg PO Q8H PRN albuterol sulfate 90 mcg/actuation 2 puffs inhalation Q6H PRN 30 days atorvastatin 40 mg PO BEDTIME 90 days benzonatate 100 mg PO BID PRN 5 days fluticasone furoate 50 mcg/actuation (Arnuity Ellipta) 1 inh inhalation DAILY 30 days fluticasone propionate 50 mcg/actuation (Flonase Allergy Relief) 1 spray intranasal DAILY lidocaine 5% 1 patch topical DAILY temazepam 30 mg PO BEDTIME PRN 30 days tramadol 50 mg PO BID PRN 30 days trazodone 25 mg (1/2 x 50 mg) PO BEDTIME PRN 90 days Ventolin HFA 90 mcg/actuation (albuterol sulfate) 2 puffs inhalation Q6H PRN 30 days NS HPI Comments Details: Raina is back in my office after diagnostic sacroiliac joint injection.She is here with her daughter who interprets oversedation in Azeri. She reports that after the procedure she had 5 hours of complete pain relief 0/10. She reports that next morning after the procedure her pain was 4/10. She continues enjoying low level of pain at this time. She is cognizant about osteoporosis. She wants me to repeat this injection in 3 months from now however she does not want it to be with steroids. We will schedule it again as a diagnostic right SI joint injection. Sprint PNS was explained to the patient. Cure on X PNS was explained to the patient. She does not want any implantable wires to be employed her pain. Prior: She complains on lower back pain mostly on the right side with radiation of the pain down the right lower extremity to the level just below the knee but not below that level. She reported that the pain started in January of 2024. She stated that her pain started after a fall. She fell at home. She reports that walking and sitting aggravate her pain while laying down make her pain better. Flexing forward aggravate her pain more than flexing backwards. She is retired individual. She is self mobile but she is moving very slowly. She reports that called and weather changes aggravate her pain. She denies any thing which would be helpful for her pain. She was prescribed tramadol and it relieves her pain for few hours only. She never had any physical therapy for this pain. [facility] Medical History Mild asthma Dyslipidemia Colon polyps Degenerative disc disease, lumbar GERD (gastroesophageal reflux disease) Osteoarthritis Insomnia Allergic rhinitis Mild asthma Right shoulder pain Hypovitaminosis D Trigeminal neuralgia Surgical History History of surgery History of bladder surgery History of esophagogastroduodenoscopy (EGD) H/O colonoscopy History of cataract surgery History of cholecystectomy History of tubal ligation Family History Father Leukemia Mother Gallbladder cancer Maternal Aunt Breast cancer Chronic mental illness Son Liver failure Family/Other FH: mental illness Daughter No problems noted. Social History Housing: Apartment Alcohol intake: never Patient Tobacco Use Status: Never used Tobacco e-Cigarette/Vaping Use: Never Used Second Hand Smoke Exposure: No service: No Current occupational status: disabled Cognitive needs: No Hearing needs: No Vision needs: No Review of Systems Const All systems reviewed & are unremarkable except as noted in HPI and below ENT Reports Normal hearing present Neuro Reports Normal hearing present, Denies Abnormal speech present and Denies Sensory deficit (Neuro) Physical Exam Vital Signs: Last Vital Signs Pulse 77 07/12/24 12:56 Resp 16 07/12/24 12:56 BP 164/75 H 07/12/24 12:56 Pulse Ox 96 07/12/24 12:56 Oxygen Delivery Method Room Air 07/12/24 12:56 BMI result Body Mass Index 26.2 Const General: no acute distress Nutritional Appearance: well nourished Orientation/consciousness: patient oriented x3 Limitations: physical limitations and ambulation with cane Eyes General: appearance normal, both eyes and all related structures Pupils: Equal, round and reactive pupils present EOM: EOMs intact bilaterally Neck Neck: Yes full ROM Chest Chest palpation & inspection: normal inspection of the chest Resp Effort & Inspection: normal respiratory effort, able to speak in complete sentences, normal respiratory pattern, no audible wheezes and no cough Cardio Jugular venous distension: no JVD GI Inspection: Yes normal to inspection Back/Spine/Pelvis Other: No tenderness on palpation in paraspinal spinal region of the upper lumbar spine however reports tenderness on palpation in the projection of the lower lumbar spine. Tenderness on palpation in projection of the right sacroiliac joint. SLR is negative bilaterally also some pain elicited in the lower extremities while performing SLR. Dorsiflexion of the foot wet maximal SLR does not aggravate her pain. Lizandro test is positive on the right. [place] test is positive on the right. Pelvic compression and pelvic distraction tests are positive on the right. Thigh thrust test is positive on the right. Loading test is equivocal on the right and negative on the left. Neuro General: patient oriented x3 and gait normal Cranial nerves: Yes CN's II-XII intact bilaterally, Yes Equal, round and reactive pupils present, Yes Normal hearing present and Yes Ability to bilaterally elevate shoulders present Speech: No Abnormal speech present Gait exam (Neuro): Normal gait present Motor exam (neuro): 5/5 motor strength present throughout Sensory Exam: No Sensory deficit (Neuro) Extrem General: No pedal edema Psych Speech and movement: Normal speech and movement present Affect: normal affect Attitude: cooperative Thought process: Normal thought process present Thought content: Normal thought content present Insight: Good insight present (Psych) Judgement: Good judgement present (Psych) Assessment & Plan Assessment & Plan (1) Spondylosis of lumbar region without myelopathy or radiculopathy: Code(s): M47.816 - Spondylosis without myelopathy or radiculopathy, lumbar region Category: Medical (2) Sacroiliitis: Code(s): M46.1 - Sacroiliitis, not elsewhere classified Category: Medical (3) Sacroiliac joint dysfunction of right side: Code(s): M53.3 - Sacrococcygeal disorders, not elsewhere classified Category: Medical Plan Sacroiliac joint injection resulted in complete pain relief for 5 hours. The patient does not want to perform injection with steroids. She requests me to perform yet another injection in 3 months from now. I will schedule her for injection sacroiliac joint injection without steroids. Sprint PNS and cure on X PNS were explained to the patient. Patient is not very happy to have any implantable devices. Nevertheless brochure of cure on X was given to the patient. Patient Instructions: I here by testify that I spent 32 minutes in conversation with this patient as well as planning her care and organizing this note. Coding Level of Care Code Est Pt Level 4 (29790) Diagnoses Spondylosis of lumbar region without myelopathy or radiculopathy M47.816 Sacroiliitis M46.1 Sacroiliac joint dysfunction of right side M53.3
[2024-07-12 12:56] VITALS: BP 164/75; PULSE 77; RESP 16; O2SAT 96; BMI 26.2
== END 2024-07-12 13:25 | disposition home or self-care (01) ==
LOC: HO.PMC 12:51
PROVIDERS: PCP Internal Medicine; Visit Provider Anesthesiology
DX: M47.816 Spondylosis without myelopathy or radiculopathy, lumbar region (principal); M46.1 Sacroiliitis, not elsewhere classified; M53.3 Sacrococcygeal disorders, not elsewhere classified
CPT/HCPCS: 99214

== ENCOUNTER → 2024-07-12 12:51 | Outpatient (BNVA) | payer OTHER, SELFPAY | PROVIDERS: PCP Internal Medicine; Visit Provider Anesthesiology | DX: M47.816 Spondylosis without myelopathy or radiculopathy, lumbar region (principal); M46.1 Sacroiliitis, not elsewhere classified; M53.3 Sacrococcygeal disorders, not elsewhere classified | CPT/HCPCS: 99212 ==

== ENCOUNTER 2024-09-14 06:18 | Outpatient (REF) | payer OTHER, SELFPAY ==
--- NOTE | ~2024-09-14 | FL_ITS ---
EXAMINATION: FL GUIDANCE ONLY HISTORY: M53.3 - Sacrococcygeal disorders, not elsewhere classified COMPARISON: None available. TECHNIQUE: Fluoroscopy time: 0.1 minute. Cumulative Dose: 0.989 mGy. DAP: 0.0171 mGym2 Images: 2. FINDINGS: Fluoroscopic spot films of the right hemipelvis demonstrate a needle and contrast material in the region of the sacroiliac joint. FL/FL guidance in treatment room IMPRESSION: Fluoroscopy during procedure. Please see procedure report for additional information. Electronically signed by: Alpesh Wen MD 09/14/2024 03:46 PM EDT
== END 2024-09-14 06:19 | disposition home or self-care (01) ==
LOC: CF 06:18
PROVIDERS: Visit Provider Anesthesiology
DX: M53.3 Sacrococcygeal disorders, not elsewhere classified (principal)
CPT/HCPCS: 27096; J2003; J2795; J3301; Q9967

== ENCOUNTER 2024-09-14 13:20 | Outpatient (AMB) | payer OTHER, SELFPAY ==
[2024-09-14 13:33] VITALS: BP 143/77; PULSE 74; RESP 18; O2SAT 97
--- NOTE | 2024-09-14 13:33 | A.OFFVIS_ITS ---
Vital Signs 09/14/24 13:33 09/14/24 14:03 Weight 150 lb BP 143/77 H 145/70 H Blood Pressure Location Lt brachial Lt brachial Position Sitting Sitting Respiration 18 18 Pulse 74 73 Pulse Source Pulse Oximeter Pulse Oximeter Pulse Oximetry (%) 97 96 Oxygen Delivery Method Room Air Room Air Intake Visit Reasons: RIGHT SIJ INJECTION W/O STEROIDS Regulatory Affairs Internship Required: Yes Regulatory Affairs Internship Services: Regulatory Affairs Internship Offered & Declined Regulatory Affairs Internship Name: pt requesting family to interp Allergies aspirin [ASPIRIN] Allergy (Intermediate, Verified 09/14/24 13:34) VOMITING omeprazole Allergy (Intermediate, Verified 09/14/24 13:34) vomiting, abd pain gabapentin Adverse Reaction (Intermediate, Verified 09/14/24 13:34) tiredness,nightmares PFSH Medical History Mild asthma Dyslipidemia Colon polyps Degenerative disc disease, lumbar GERD (gastroesophageal reflux disease) Osteoarthritis Insomnia Allergic rhinitis Mild asthma Right shoulder pain Hypovitaminosis D Trigeminal neuralgia Surgical History History of surgery History of bladder surgery History of esophagogastroduodenoscopy (EGD) H/O colonoscopy History of cataract surgery History of cholecystectomy History of tubal ligation Family History Father Leukemia Mother Gallbladder cancer Maternal Aunt Breast cancer Chronic mental illness Son Liver failure Family/Other FH: mental illness Daughter No problems noted. Social History Housing: Apartment Alcohol intake: never Patient Tobacco Use Status: Never used Tobacco e-Cigarette/Vaping Use: Never Used Second Hand Smoke Exposure: No service: No Current occupational status: disabled Cognitive needs: No Hearing needs: No Vision needs: No Physical Exam Vital Signs: Last Vital Signs Pulse 73 09/14/24 14:03 Resp 18 09/14/24 14:03 BP 145/70 H 09/14/24 14:03 Pulse Ox 96 09/14/24 14:03 Oxygen Delivery Method Room Air 09/14/24 14:03 Assessment & Plan Assessment & Plan (1) Spondylosis of lumbar region without myelopathy or radiculopathy: Code(s): M47.816 - Spondylosis without myelopathy or radiculopathy, lumbar region Category: Medical (2) Sacroiliitis: Code(s): M46.1 - Sacroiliitis, not elsewhere classified Category: Medical (3) Sacroiliac joint dysfunction of right side: Code(s): M53.3 - Sacrococcygeal disorders, not elsewhere classified Category: Medical Plan Right therapeutic sacroiliac joint injection. Informed consent was thoroughly explained to the patient before the procedure.? The patient came to the operating room.? She was positioned prone on operating table with a pillow under her abdomen.? Time-out was performed delineating correct site and side of the procedure, nature of the injection, name and date of of the patient. The lower back and upper buttocks of the patient was prepped with ChloraPrep and draped with sterile utility towels.? C-arm was brought over the operating field the image of the right sacroiliac joint was demonstrated on the screen. Tilting machine contralateral to the left the anterior portion of sacroiliac joint was superimposed of the posterior portion of the sacroiliac joint. After that projection of the sacroiliac joint to the skin was injected with mixture of lidocaine 2 % and ropivacaine 0.5% to form a skin wheal. After that 22 gauge 3- 1/2 inch needle was inserted through the skin wheal and advanced to the sacroiliac joint. After that injection of the contrast was performed delineating intra-articular spread of the contrast. After that injection of the ropivacaine 0.5% 4 cc mixed with 1 ml of kenalog 40 mg was performed into the joint. The needle was removed sterile Band-Aid was applied. Patient tolerated the procedure well. Orders: Orders FL guidance in treatment room Today M53.3 - Sacrococcygeal disorders, not elsewhere classified Coding Level of Care Code Procedure Only Diagnoses Spondylosis of lumbar region without myelopathy or radiculopathy M47.816 Sacroiliitis M46.1 Sacroiliac joint dysfunction of right side M53.3
[2024-09-14 14:03] VITALS: BP 145/70; PULSE 73; RESP 18; O2SAT 96
== END 2024-09-14 14:07 | disposition home or self-care (01) ==
LOC: HO.PMCPRC 13:20
PROVIDERS: PCP Internal Medicine; Visit Provider Anesthesiology
DX: M47.816 Spondylosis without myelopathy or radiculopathy, lumbar region (principal); M46.1 Sacroiliitis, not elsewhere classified; M53.3 Sacrococcygeal disorders, not elsewhere classified
CPT/HCPCS: 27096

== ENCOUNTER 2024-10-14 11:17 | Outpatient (AMB) | payer OTHER, SELFPAY ==
--- NOTE | 2024-10-14 11:23 | MHC.OFFVIS ---
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 She reported 1 month of almost complete pain relief. She reports very good mobility very good activities of daily living, good social interactions. I explained to the patient how we can proceed from now on. We can continue to perform sacroiliac joint injections provided they are less frequent than once in 4 months. Ideally 2 injections a year would be a goal at which I would consider minimal impact of steroids on this patient's health. Alternatively I explained to the patient peripheral nerve stimulation cure on X. She has negative at this time about this procedure, we decided that we will wait and see how long this injection will last. 5 hours of complete pain relief after diagnostic SI joint injection on the right. . Prior: She complains on lower back pain mostly on the right side with radiation of the pain down the right lower extremity to the level just below the knee but not below that level. She reported that the pain started in January of 2024. She stated that her pain started after a fall. She fell at home. She reports that walking and sitting aggravate her pain while laying down make her pain better. Flexing forward aggravate her pain more than flexing backwards. She is retired individual. She is self mobile but she is moving very slowly. She reports that called and weather changes aggravate her pain. She denies any thing which would be helpful for her pain. She was prescribed tramadol and it relieves her pain for few hours only. She never had any physical therapy for this pain. [facility] Medical History Mild asthma Dyslipidemia Colon polyps Degenerative disc disease, lumbar GERD (gastroesophageal reflux disease) Osteoarthritis Insomnia Allergic rhinitis Mild asthma Right shoulder pain Hypovitaminosis D Trigeminal neuralgia Surgical History History of surgery History of bladder surgery History of esophagogastroduodenoscopy (EGD) H/O colonoscopy History of cataract surgery History of cholecystectomy History of tubal ligation Family History Father Leukemia Mother Gallbladder cancer Maternal Aunt Breast cancer Chronic mental illness Son Liver failure Family/Other FH: mental illness Daughter No problems noted. Social History Housing: Apartment Alcohol intake: never Patient Tobacco Use Status: Never used Tobacco e-Cigarette/Vaping Use: Never Used Second Hand Smoke Exposure: No service: No Current occupational status: disabled Cognitive needs: No Hearing needs: No Vision needs: No Review of Systems Const All systems reviewed & are unremarkable except as noted in HPI and below ENT Reports Normal hearing present Neuro Reports Normal hearing present, Denies Abnormal speech present and Denies Sensory deficit (Neuro) Physical Exam Vital Signs: Last Vital Signs Pulse 69 10/14/24 11:24 Resp 18 10/14/24 11:24 BP 135/65 10/14/24 11:24 Pulse Ox 98 10/14/24 11:24 Oxygen Delivery Method Room Air 10/14/24 11:24 Const General: no acute distress Nutritional Appearance: well nourished Orientation/consciousness: patient oriented x3 Limitations: physical limitations and ambulation with cane Eyes General: appearance normal, both eyes and all related structures Pupils: Equal, round and reactive pupils present EOM: EOMs intact bilaterally Neck Neck: Yes full ROM Chest Chest palpation & inspection: normal inspection of the chest Resp Effort & Inspection: normal respiratory effort, able to speak in complete sentences, normal respiratory pattern, no audible wheezes and no cough Cardio Jugular venous distension: no JVD GI Inspection: Yes normal to inspection Back/Spine/Pelvis Other: No tenderness on palpation in paraspinal spinal region of the upper lumbar spine however reports tenderness on palpation in the projection of the lower lumbar spine. Tenderness on palpation in projection of the right sacroiliac joint. SLR is negative bilaterally also some pain elicited in the lower extremities while performing SLR. Dorsiflexion of the foot wet maximal SLR does not aggravate her pain. Lizandro test is positive on the right. Gaenslen test is positive on the right. Pelvic compression and pelvic distraction tests are positive on the right. Thigh thrust test is positive on the right. Loading test is equivocal on the right and negative on the left. Neuro General: patient oriented x3 and gait normal Cranial nerves: Yes CN's II-XII intact bilaterally, Yes Equal, round and reactive pupils present, Yes Normal hearing present and Yes Ability to bilaterally elevate shoulders present Speech: No Abnormal speech present Gait exam (Neuro): Normal gait present Motor exam (neuro): 5/5 motor strength present throughout Sensory Exam: No Sensory deficit (Neuro) Extrem General: No pedal edema Psych Speech and movement: Normal speech and movement present Affect: normal affect Attitude: cooperative Thought process: Normal thought process present Thought content: Normal thought content present Insight: Good insight present (Psych) Judgement: Good judgement present (Psych) Assessment & Plan Assessment & Plan (1) Spondylosis of lumbar region without myelopathy or radiculopathy: Code(s): M47.816 - Spondylosis without myelopathy or radiculopathy, lumbar region Category: Medical (2) Sacroiliitis: Code(s): M46.1 - Sacroiliitis, not elsewhere classified Category: Medical (3) Sacroiliac joint dysfunction of right side: Code(s): M53.3 - Sacrococcygeal disorders, not elsewhere classified Category: Medical Plan Right diagnostic Sacroiliac joint injection resulted in complete pain relief for 5 hours. Therapeutic sacroiliac joint injection with steroids resulted in 1 month of pain relief. Initially she was reluctant to go for steroid injections. However now she does not want to hear about neuromodulation when I explained that to her. We decided to continue observation. If injection is less frequent than once in 4 months we can not continue those injections. Otherwise I think we should consider neuromodulation. Coding Level of Care Code Est Pt Level 3 (22776) Diagnoses Spondylosis of lumbar region without myelopathy or radiculopathy M47.816 Sacroiliitis M46.1 Sacroiliac joint dysfunction of right side M53.3
[2024-10-14 11:24] VITALS: BP 135/65; PULSE 69; RESP 18; O2SAT 98
== END 2024-10-14 11:45 | disposition home or self-care (01) ==
LOC: HO.PMC 11:18
PROVIDERS: PCP Internal Medicine; Visit Provider Anesthesiology
DX: M47.816 Spondylosis without myelopathy or radiculopathy, lumbar region (principal); M46.1 Sacroiliitis, not elsewhere classified; M53.3 Sacrococcygeal disorders, not elsewhere classified
CPT/HCPCS: 99213

== ENCOUNTER → 2024-10-14 11:17 | Outpatient (BNVA) | payer OTHER, SELFPAY | PROVIDERS: PCP Internal Medicine; Visit Provider Anesthesiology | DX: M47.816 Spondylosis without myelopathy or radiculopathy, lumbar region (principal); M46.1 Sacroiliitis, not elsewhere classified; M53.3 Sacrococcygeal disorders, not elsewhere classified | CPT/HCPCS: 99212 ==

== ENCOUNTER 2024-10-21 09:52 | Outpatient (AMB) | payer OTHER, SELFPAY ==
--- NOTE | 2024-10-21 10:11 | A.OFFPC_ITS ---
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 Accompanied by: Daughter Allergies aspirin (ASPIRIN) Allergy (Intermediate, Verified 10/21/24 10:42) VOMITING omeprazole Allergy (Intermediate, Verified 10/21/24 10:42) vomiting, abd pain gabapentin Adverse Reaction (Intermediate, Verified 10/21/24 10:42) tiredness,nightmares Medication List - Last Reconciled 10/21/24 by Sarah Gonzales MD acetaminophen ER (Tylenol Arthritis Pain) 650 mg PO Q8H PRN albuterol sulfate 90 mcg/actuation 2 puffs inhalation Q6H PRN 30 days atorvastatin 40 mg PO BEDTIME 90 days benzonatate 100 mg PO BID PRN 5 days fluticasone furoate 50 mcg/actuation (Arnuity Ellipta) 1 inh inhalation DAILY 30 days fluticasone propionate 50 mcg/actuation (Flonase Allergy Relief) 1 spray intranasal DAILY lidocaine 5% 1 patch topical DAILY temazepam 30 mg PO BEDTIME PRN 30 days tramadol 50 mg PO BID PRN 30 days trazodone 25 mg (1/2 x 50 mg) PO BEDTIME PRN 90 days Ventolin HFA 90 mcg/actuation (albuterol sulfate) 2 puffs inhalation Q6H PRN 30 days NS Tobacco use date assessed: 05/13/24 Fall risk assessment: No Falls in past year Last assessed Fall Risk: 10/21/24 Dental Screening Dental Screen Date: 05/13/24 HPI HPI Comments History of Present Illness Details The patient is an 79-year-old female presenting for an annual physical exam and review of preventative care measures. The patient has a history of osteoporosis, for which she is undergoing bone densitometry to monitor her condition. She receives an injection every six months to manage her osteoporosis symptoms, which include difficulty walking. Her vaccination history includes a Tdap vaccine administered in 2019 and a pneumonia vaccine at the age of 74, indicating she is up-to-date with her vaccinations. She had a mammogram last year and a colonoscopy in 2019, both as part of her routine preventative care. The patient has a documented allergy to aspirin, which causes vomiting, and omeprazole and gabapentin, which cause fatigue. Her current medications include Tylenol and atorvastatin 40 mg for cholesterol management. Her surgical history includes cataract surgery, gallbladder removal, and tubal ligation. Her family history is significant for her father dying at 48 from leukemia and her mother at 58 from cancer. The patient denies smoking, alcohol use, and any history of depression or anxiety. [facility] Medical History Mild asthma Dyslipidemia Colon polyps Degenerative disc disease, lumbar GERD (gastroesophageal reflux disease) Osteoarthritis Insomnia Allergic rhinitis Mild asthma Right shoulder pain Hypovitaminosis D Trigeminal neuralgia Surgical History History of surgery History of bladder surgery History of esophagogastroduodenoscopy (EGD) H/O colonoscopy History of cataract surgery History of cholecystectomy History of tubal ligation Family History Father Leukemia Mother Gallbladder cancer Maternal Aunt Breast cancer Chronic mental illness Son Liver failure Family/Other FH: mental illness Daughter No problems noted. Social History Housing: Apartment Alcohol intake: never Patient Tobacco Use Status: Never used Tobacco e-Cigarette/Vaping Use: Never Used Second Hand Smoke Exposure: No service: No Current occupational status: disabled Cognitive needs: No Hearing needs: No Vision needs: No Questionnaire PHQ-9 Over the last 2 weeks, how often have you been bothered by any of the following problems? 1. Little interest or pleasure in doing things: not at all 2. Feeling down, depressed, or hopeless: not at all 3. Trouble falling or staying asleep, or sleeping too much: not at all 4. Feeling tired or having little energy: not at all 5. Poor appetite or overeating: not at all 6. Feeling bad about yourself - or that you are a failure or have let yourself or your family down: not at all 7. Trouble concentrating on things, such as reading the newspaper or watching television: not at all 8. Moving or speaking so slowly that other people could have noticed. Or the opposite - being so fidgety or restless that you have been moving around a lot more than usual: not at all 9. Thoughts that you would be better off or of hurting yourself in some way: not at all Total score: 0 Depression Screening Interpretation: Negative Depression Screening Done: Yes 81632 - PHQ-9 Billing: Yes Source: Developed by Drs. Alpesh Carter, Maritza Richards, Mitchel Head and colleagues, with an educational helga from [employer]. Thrive Questionnaire Date Thrive assessed: 10/21/24 I am a: Patient What is your living situation today?: I have a steady place to live Within the past 12 months, did the food you bought not last and you didn't have the money to get more?: Never true Within the past 12 months, did you worry whether your food would run out before you got money to buy more?: Never true Do you have trouble paying for medicines?: No Do you have trouble getting transportation to medical appointments?: No Do you have trouble paying your heating and electricity bill?: No Do you have trouble taking care of your child, family member or friend?: No Do you have trouble with day-to-day activities such as bathing, preparing meals, shopping, managing finances, etc.?: No Are you currently unemployed and looking for a job?: No Are you interested in more education?: No Please select the resources that you would like help with: None Currently or been in a relationship where the following occur: No concerns reported THRIVE Score: 0 AUDIT C Alcohol Use Questionnaire (AUDIT-C) 1. How often do you have a drink containing alcohol?: Never Total Score: 0 Score Reviewed/Action Taken: No JAMEEL-7 AMB Questionnaire JAMEEL-7 Date JAMEEL - 7 assessed: 10/21/24 Feeling nervous, anxious, or on edge: 0 = Not at all Not being able to stop or control worryin = Not at all Worrying too much about different things: 0 = Not at all Trouble relaxin = Not at all Being so restless that it is hard to sit still: 0 = Not at all Becoming easily annoyed or irritable: 0 = Not at all Feeling afraid as if something awful might happen: 0 = Not at all Total JAMEEL-7 score (0-4 normal; 5-9 mild; 10-14 moderate; 15-21 severe): 0 Source: Developed by Drs. Alpesh Carter, Maritza Richards, Mitchel Head and colleagues, with an educational helga from [employer]. JAMEEL-7 Assessment Billing JAMEEL-7 Assessment Tool: JAMEEL-7 Assessment 80649 Review of Systems Const All systems reviewed & are unremarkable except as noted in HPI and below Card Denies chest pain at rest, Denies chest pain with activity, Denies edema, Denies irregular heart rhythm, Denies claudication, Denies dyspnea, Denies dyspnea on exertion, Denies orthopnea, Denies paroxysmal nocturnal dyspnea and Denies slow heart rate Resp Denies cough, Denies dyspnea and Denies dyspnea on exertion GI Denies abdominal pain, Denies change in bowel habits, Denies excessive flatus, Denies nausea and Denies vomiting Denies urinary incontinence, Denies urinary hesitancy and Denies urinary urgency Musc Denies abnormal gait, Denies atrophy, Denies deformity and Denies limited range of motion Skin/Breast Denies bleeding lesions, Denies changing lesions and Denies rash Neuro Denies abnormal gait, Denies behavioral changes and Denies lack of coordination Psych Denies behavioral changes Physical exam (Primary Care) Vital Signs: Last Vital Signs BP 122/70 10/21/24 10:13 BMI result Body Mass Index 26.4 Tobacco/Smoking Status: Tobacco use Status Tobacco use date assessed 05/13/24 10/21/24 10:19 Patient Tobacco Use Status Never used Tobacco 10/21/24 10:19 e-Cigarette/Vaping Use Never Used 10/21/24 10:19 PHQ-9: PHQ-9 Score PHQ-9: Total score 0 10/21/24 10:45 Depression Screening Interpretation: Negative Thrive Assessment: Date of Thrive Assessment Date Thrive assessed 10/21/24 10/21/24 10:19 Currently or been in a relationship where the following occur: No concerns reported HENOR Head: Yes normal to inspection, Yes normocephalic and Yes atraumatic Ears: external ears normal Eyes General: appearance normal, both eyes and all related structures Eyelids: Yes eyelids normal Conjunctivae: conjunctivae normal Neck Neck: Yes normal visual inspection and Yes supple Resp Effort & Inspection: normal respiratory effort Auscultation: clear to auscultation bilaterally Cardio Jugular venous distension: no JVD Rate: regular rate Rhythm: regular rhythm Heart sounds: S1 normal heart sound present and S2 normal heart sound present GI Inspection: Yes normal to inspection Palpation (GI): Soft to palpation and nontender Auscultation: normal bowel sounds Skin General skin exam: no rashes or lesions noted Neuro General: no focal motor deficits Extrem General: Yes full ROM Psych Appearance: grossly normal Coding Level of Care Code Est Pt Level 3 (70076) Est Pt Prev Care >65y(20205) Diagnoses Physical exam Z00.00 Primary insomnia F51.01 Insomnia type: primary Additional Codes JAMEEL-7 Assessment Billing - JAMEEL-7 Assessment Tool: JAMEEL-7 Assessment 31160 ([id number]) PHQ-9 - 78494 - PHQ-9 Billing: Yes ([id number]) Time Spent (min) 33 Assessment & Plan Assessment & Plan (1) Physical exam: Code(s): Z00.00 - Encounter for general adult medical examination without abnormal findings Category: Medical (2) Insomnia: Code(s): G47.00 - Insomnia, unspecified Category: Medical Qualifiers: Insomnia type: primary Qualified Code(s): F51.01 - Primary insomnia Plan The patient will continue with her current osteoporosis management, including biannual injections and bone densitometry to monitor her condition. She is advised to maintain her vaccination schedule, having received the Tdap and pneumonia vaccines. Routine screenings such as mammograms and colonoscopies are up-to-date, with the next mammogram due next year and colonoscopy as per guidelines. The patient is to undergo fasting laboratory tests to monitor her cholesterol levels, given her atorvastatin prescription. She is advised to avoid aspirin, omeprazole, and gabapentin due to documented allergies and side effects. Patient was informed and verbally consented to the use of an ambient scribe for clinic note documentation during this visit. Orders: Orders XR DEXA axial skeleton Today Z78.0 - Asymptomatic menopausal state Comprehensive Garner. Panel Fast Today M46.1 - Sacroiliitis, not elsewhere classified MM tomosynthesis screening BI Today Z12.31 - Encounter for screening mammogram for malignant neoplasm of breast Lipid Panel Today E78.5 - Hyperlipidemia, unspecified Medications: New trazodone 100 mg PO BEDTIME PRN 30 tabs 0RF sleep 30 days Discontinued temazepam Discontinued Reason: Patient Completed Course 30 mg PO BEDTIME 30 days PRN 30 caps 0RF sleep trazodone Discontinued Reason: Patient Completed Course 25 mg (1/2 x 50 mg) PO BEDTIME 90 days PRN 90 tabs 2RF sleep
[2024-10-21 10:13] VITALS: BP 122/70; BMI 26.4
== END 2024-10-21 11:00 | disposition home or self-care (01) ==
LOC: HO.HMCH 09:53
PROVIDERS: PCP Internal Medicine; Visit Provider Internal Medicine
DX: Z00.00 Encounter for general adult medical examination without abnormal findings (principal); F51.01 Primary insomnia

== ENCOUNTER → 2024-10-21 09:52 | Outpatient (BNVA) | payer OTHER, SELFPAY | PROVIDERS: PCP Internal Medicine; Visit Provider Internal Medicine | DX: Z00.00 Encounter for general adult medical examination without abnormal findings (principal); M81.0 Age-related osteoporosis without current pathological fracture; F51.01 Primary insomnia; M46.1 Sacroiliitis, not elsewhere classified; E78.5 Hyperlipidemia, unspecified; Z78.0 Asymptomatic menopausal state | CPT/HCPCS: 96127; 99212; 99397 ==

== ENCOUNTER 2024-10-25 09:14 | Outpatient (REF) | payer OTHER, SELFPAY ==
[2024-10-25 10:20] LABS: Alanine Aminotransferase 11 U/L (0-31); Albumin Level 4.1 g/dL (3.5-5.0); Alkaline Phosphatase 59 U/L (39-117); Anion Gap 10 (12-20); Aspartate Amino Transferase 12 U/L (5-31); Blood Urea Nitrogen 12 mg/dL (9-16); Calcium 9.1 mg/dL (8.4-10.2); Carbon Dioxide 29 mmol/L (22-29); Chloride 109 mmol/L (96-108); Cholesterol 198 mg/dL (<200); Estimated Glomerular Filt Rate > 60; HDL Cholesterol 39 mg/dL (>40); Potassium 4.1 mmol/L (3.3-5.1); Sodium 144 mmol/L (135-145); Total Protein 6.8 g/dL (6.5-8.0); Triglycerides 121 mg/dL (<150)
== END 2024-10-25 09:15 | disposition home or self-care (01) ==
LOC: HO.LAB 09:14
PROVIDERS: PCP Internal Medicine; Visit Provider Internal Medicine
DX: M46.1 Sacroiliitis, not elsewhere classified (principal); E55.9 Vitamin D deficiency, unspecified; E78.5 Hyperlipidemia, unspecified
CPT/HCPCS: 36415; 80053; 80061; 82306

== ENCOUNTER 2024-11-24 13:26 | Outpatient (REF) | payer OTHER, SELFPAY ==
--- NOTE | ~2024-11-24 | MM_ITS ---
EXAMINATION: MM SCREENING DIGITAL BREAST TOMOSYNTHESIS, BILATERAL CLINICAL INFORMATION: Screening. Asymptomatic. COMPARISON: Comparison made to multiple prior, most recent October 31, 2023, and most remote October 17, 2016. TECHNIQUE: Digital breast tomosynthesis is performed in both the craniocaudal and mediolateral oblique views along with computer-aided detection (CAD). FINDINGS: BREAST COMPOSITION: There are scattered areas of fibroglandular density (ACR BI-RADS breast composition Category b). BILATERAL BREASTS: No significant masses, suspicious calcifications or other abnormalities are seen in either breast. MM/MM tomosynthesis screening BI IMPRESSION: BILATERAL BREASTS: Negative, no mammographic evidence of malignancy. Normal interval follow-up is recommended in 12 months. ASSESSMENT: BI-RADS 1 - Negative RECOMMENDATION: Routine annual mammography screening. FOLLOW-UP: 1 year F/U This examination should not preclude the clinical evaluation of a suspicious palpable abnormality. This patient's information was entered into a reminder system with a target due date for their next mammogram. Electronically signed by: Nicolas Romero MD 11/29/2024 08:18 PM EDT
== END 2024-11-24 13:27 | disposition home or self-care (01) ==
LOC: HO.MAMMO 13:26
PROVIDERS: PCP Internal Medicine; Visit Provider Internal Medicine
DX: Z12.31 Encounter for screening mammogram for malignant neoplasm of breast (principal)
CPT/HCPCS: 77063; 77067

== ENCOUNTER → 2024-11-24 13:30 | Outpatient (BNV) | payer OTHER, SELFPAY | PROVIDERS: PCP Internal Medicine; Visit Provider Radiology Body Imaging | DX: Z12.31 Encounter for screening mammogram for malignant neoplasm of breast (principal) | CPT/HCPCS: 77063; 77067 ==

== ENCOUNTER 2024-12-15 12:39 | Outpatient (AMB) | payer OTHER, SELFPAY ==
--- NOTE | 2024-12-15 12:49 | MHC.OFFVIS ---
Vital Signs 12/15/24 12:53 Weight 148 lb BP 144/67 H Blood Pressure Location Lt brachial Position Sitting Respiration 18 Pulse 71 Pulse Source Pulse Oximeter Pulse Oximetry (%) 96 Oxygen Delivery Method Room Air Intake Visit Reasons: Repeat shoulder inj Health Program Manager Required: Yes Health Program Manager Name: family Allergies aspirin (ASPIRIN) Allergy (Intermediate, Verified 12/15/24 12:52) VOMITING omeprazole Allergy (Intermediate, Verified 12/15/24 12:52) vomiting, abd pain gabapentin Adverse Reaction (Intermediate, Verified 12/15/24 12:52) tiredness,nightmares HPI Comments Details: Raina is back in my office with a request to perform diagnostic as well as therapeutic shoulder injection. She reports severe pain in the right shoulder. The x-ray of the right shoulder was performed in 2020 and demonstrated advanced osteoarthritis changes see the full report as below. Unfortunately this patient recently received therapeutic sacroiliac joint injection. She is diagnose with advanced osteoporosis. We agreed that I will schedule this patient for intra-articular right shoulder steroid injection. I explained to the patient that this will postpone next therapeutic sacroiliac joint injection because of the influence of steroid injections on osteoporosis. Prior: after therapeutic right sacroiliac joint injection. She reported 1 month of almost complete pain relief. She reports very good mobility very good activities of daily living, good social interactions. I explained to the patient how we can proceed from now on. We can continue to perform sacroiliac joint injections provided they are less frequent than once in 4 months. Ideally 2 injections a year would be a goal at which I would consider minimal impact of steroids on this patient's health. Alternatively I explained to the patient peripheral nerve stimulation cure on X. She has negative at this time about this procedure, we decided that we will wait and see how long this injection will last. 5 hours of complete pain relief after diagnostic SI joint injection on the right. . Prior: She complains on lower back pain mostly on the right side with radiation of the pain down the right lower extremity to the level just below the knee but not below that level. She reported that the pain started in January of 2024. She stated that her pain started after a fall. She fell at home. She reports that walking and sitting aggravate her pain while laying down make her pain better. Flexing forward aggravate her pain more than flexing backwards. She is retired individual. She is self mobile but she is moving very slowly. She reports that called and weather changes aggravate her pain. She denies any thing which would be helpful for her pain. She was prescribed tramadol and it relieves her pain for few hours only. She never had any physical therapy for this pain. COUNTS INCLUDE 234 BEDS AT THE [facility] Medical History Mild asthma Dyslipidemia Colon polyps Degenerative disc disease, lumbar GERD (gastroesophageal reflux disease) Osteoarthritis Insomnia Allergic rhinitis Mild asthma Right shoulder pain Hypovitaminosis D Trigeminal neuralgia Surgical History History of surgery History of bladder surgery History of esophagogastroduodenoscopy (EGD) H/O colonoscopy History of cataract surgery History of cholecystectomy History of tubal ligation Family History Father Leukemia Mother Gallbladder cancer Maternal Aunt Breast cancer Chronic mental illness Son Liver failure Family/Other FH: mental illness Daughter No problems noted. Social History Housing: Apartment Alcohol intake: never Patient Tobacco Use Status: Never used Tobacco e-Cigarette/Vaping Use: Never Used Second Hand Smoke Exposure: No service: No Current occupational status: disabled Cognitive needs: No Hearing needs: No Vision needs: No Review of Systems Const All systems reviewed & are unremarkable except as noted in HPI and below ENT Reports Normal hearing present Neuro Reports Normal hearing present, Denies Abnormal speech present and Denies Sensory deficit (Neuro) Physical Exam Vital Signs: Last Vital Signs Pulse 71 12/15/24 12:53 Resp 18 12/15/24 12:53 BP 144/67 H 12/15/24 12:53 Pulse Ox 96 12/15/24 12:53 Oxygen Delivery Method Room Air 12/15/24 12:53 Const General: no acute distress Nutritional Appearance: well nourished Orientation/consciousness: patient oriented x3 Limitations: physical limitations and ambulation with cane Eyes General: appearance normal, both eyes and all related structures Pupils: Equal, round and reactive pupils present EOM: EOMs intact bilaterally Neck Neck: Yes full ROM Chest Chest palpation & inspection: normal inspection of the chest Resp Effort & Inspection: normal respiratory effort, able to speak in complete sentences, normal respiratory pattern, no audible wheezes and no cough Cardio Jugular venous distension: no JVD GI Inspection: Yes normal to inspection Back/Spine/Pelvis Other: No tenderness on palpation in paraspinal spinal region of the upper lumbar spine however reports tenderness on palpation in the projection of the lower lumbar spine. Tenderness on palpation in projection of the right sacroiliac joint. SLR is negative bilaterally also some pain elicited in the lower extremities while performing SLR. Dorsiflexion of the foot wet maximal SLR does not aggravate her pain. Lizandro test is positive on the right. Gaenslen test is positive on the right. Pelvic compression and pelvic distraction tests are positive on the right. Thigh thrust test is positive on the right. Loading test is equivocal on the right and negative on the left. Neuro General: patient oriented x3 and gait normal Cranial nerves: Yes CN's II-XII intact bilaterally, Yes Equal, round and reactive pupils present, Yes Normal hearing present and Yes Ability to bilaterally elevate shoulders present Speech: No Abnormal speech present Gait exam (Neuro): Normal gait present Motor exam (neuro): 5/5 motor strength present throughout Sensory Exam: No Sensory deficit (Neuro) Extrem Other: Severely limited range of motion of the right shoulder joint. No swelling no redness severe tenderness on palpation. General: No pedal edema Psych Speech and movement: Normal speech and movement present Affect: normal affect Attitude: cooperative Thought process: Normal thought process present Thought content: Normal thought content present Insight: Good insight present (Psych) Judgement: Good judgement present (Psych) Results Reviewed Results Reviewed: X-ray lumbar sacral spine. 03/23/2024. Findings: Mild grade 1 anterolisthesis of L3 on L4 and L4 on L5. Moderate to severe degenerative disc disease at L5-S1 with joint space narrowing and subchondral sclerosis progressed from 2014. Mild multilevel degenerative disc disease with loss of intervertebral disc height and marginal osteophytes. Advanced multilevel facet arthropathy. Vertebral body heights are maintained. Imaged portion of the sacroiliac joints are normal. Paraspinal soft tissues are unremarkable. MR#: [id number] : 1945 Acct:[id number] 01/11/21 EXAMINATION: XR SHOULDER, RIGHT CLINICAL INFORMATION: Pain. COMPARISON: None. TECHNIQUE: AP, Grashey, and axillary views of the right shoulder. FINDINGS: Severe glenohumeral joint space narrowing with subchondral sclerosis, mild bony remodeling, and marginal osteophytes. Acromioclavicular marginal osteophytes with prominent subchondral spurring. No acute fracture or dislocation. IMPRESSION: Severe glenohumeral and moderate acromioclavicular osteoarthritis, unchanged. Prominent subacromial spurring. Assessment & Plan Assessment & Plan (1) Spondylosis of lumbar region without myelopathy or radiculopathy: Code(s): M47.816 - Spondylosis without myelopathy or radiculopathy, lumbar region Category: Medical (2) Sacroiliitis: Code(s): M46.1 - Sacroiliitis, not elsewhere classified Category: Medical (3) Sacroiliac joint dysfunction of right side: Code(s): M53.3 - Sacrococcygeal disorders, not elsewhere classified Category: Medical (4) Right shoulder pain: Code(s): M25.511 - Pain in right shoulder Category: Medical Qualifiers: Chronicity: chronic Qualified Code(s): M25.511 - Pain in right shoulder; G89.29 - Other chronic pain (5) Primary osteoarthritis, right shoulder: Code(s): M19.011 - Primary osteoarthritis, right shoulder Category: Medical Plan Right diagnostic Sacroiliac joint injection resulted in complete pain relief for 5 hours. Therapeutic sacroiliac joint injection with steroids resulted in 1 month of pain relief. Initially she was reluctant to go for steroid injections. However now she does not want to hear about neuromodulation when I explained that to her. She would like to continue sacroiliac joint injections. However today she complained on pain in the right shoulder and requested me to inject the right shoulder. I explained to the patient that I do injections of the right shoulder under image guided only. I will schedule her for the procedure as soon as possible. She is diagnose with severe osteoporosis. Therefore her sacroiliac joint injection next time we will be performed with delay. Coding Level of Care Code Est Pt Level 3 (51719) Diagnoses Spondylosis of lumbar region without myelopathy or radiculopathy M47.816 Sacroiliitis M46.1 Sacroiliac joint dysfunction of right side M53.3 Chronic right shoulder pain M25.511; G89.29 Chronicity: chronic Primary osteoarthritis, right shoulder M19.011
[2024-12-15 12:53] VITALS: BP 144/67; PULSE 71; RESP 18; O2SAT 96
== END 2024-12-15 13:12 | disposition home or self-care (01) ==
LOC: HO.PMC 12:40
PROVIDERS: PCP Internal Medicine; Visit Provider Anesthesiology
DX: M47.816 Spondylosis without myelopathy or radiculopathy, lumbar region (principal); M46.1 Sacroiliitis, not elsewhere classified; M53.3 Sacrococcygeal disorders, not elsewhere classified; M25.511 Pain in right shoulder; G89.29 Other chronic pain; M19.011 Primary osteoarthritis, right shoulder
CPT/HCPCS: 99213

== ENCOUNTER → 2024-12-15 12:39 | Outpatient (BNVA) | payer OTHER, SELFPAY | PROVIDERS: PCP Internal Medicine; Visit Provider Anesthesiology | DX: M47.816 Spondylosis without myelopathy or radiculopathy, lumbar region (principal); M46.1 Sacroiliitis, not elsewhere classified; M53.3 Sacrococcygeal disorders, not elsewhere classified; M25.511 Pain in right shoulder; G89.29 Other chronic pain | CPT/HCPCS: 99212 ==

== ENCOUNTER 2025-01-25 06:25 | Outpatient (REF) | payer OTHER, SELFPAY ==
--- NOTE | ~2025-01-25 | FL_ITS ---
EXAMINATION: FL GUIDANCE ONLY HISTORY: M19.011 - Primary osteoarthritis, right shoulder COMPARISON: None available. TECHNIQUE: Fluoroscopy time: 11.1 seconds. Cumulative Dose: 1.2816 mGy. DAP: 0.5575 Gycm2 Images: 2. FINDINGS: Fluoroscopic spot films of the right shoulder demonstrate a needle in place and contrast material in the joint space. FL/FL guidance in treatment room IMPRESSION: Fluoroscopy during procedure. Please see procedure report for additional information. Electronically signed by: Alpesh Wen MD 01/25/2025 03:46 PM EDT
== END 2025-01-25 06:26 | disposition home or self-care (01) ==
LOC: CF 06:25
PROVIDERS: Visit Provider Anesthesiology
DX: M19.011 Primary osteoarthritis, right shoulder (principal); G89.29 Other chronic pain
CPT/HCPCS: 20610; J2003; J3301; Q9967

== ENCOUNTER 2025-01-25 14:22 | Outpatient (AMB) | payer OTHER, SELFPAY ==
[2025-01-25 14:32] VITALS: BP 170/72; PULSE 73; RESP 16; O2SAT 97; BMI 26.2
--- NOTE | 2025-01-25 14:32 | MHC.OFFVIS ---
Vital Signs 01/25/25 14:32 01/25/25 14:50 Height 5 ft 3 in Weight 148 lb BMI 26.2 BP 170/72 H 107/61 Blood Pressure Location Lt brachial Lt radial Position Sitting Sitting Respiration 16 16 Pulse 73 72 Pulse Source Pulse Oximeter Pulse Oximeter Pulse Oximetry (%) 97 97 Oxygen Delivery Method Room Air Room Air Intake Visit Reasons: (R) Shoulder Intra-Articular Steroid Injection Allergies aspirin (ASPIRIN) Allergy (Intermediate, Verified 12/15/24 12:52) VOMITING omeprazole Allergy (Intermediate, Verified 12/15/24 12:52) vomiting, abd pain gabapentin Adverse Reaction (Intermediate, Verified 12/15/24 12:52) tiredness,nightmares PFSH Medical History Mild asthma Dyslipidemia Colon polyps Degenerative disc disease, lumbar GERD (gastroesophageal reflux disease) Osteoarthritis Insomnia Allergic rhinitis Mild asthma Right shoulder pain Hypovitaminosis D Trigeminal neuralgia Surgical History History of surgery History of bladder surgery History of esophagogastroduodenoscopy (EGD) H/O colonoscopy History of cataract surgery History of cholecystectomy History of tubal ligation Family History Father Leukemia Mother Gallbladder cancer Maternal Aunt Breast cancer Chronic mental illness Son Liver failure Family/Other FH: mental illness Daughter No problems noted. Social History Housing: Apartment Alcohol intake: never Patient Tobacco Use Status: Never used Tobacco e-Cigarette/Vaping Use: Never Used Second Hand Smoke Exposure: No service: No Current occupational status: disabled Cognitive needs: No Hearing needs: No Vision needs: No Physical Exam Vital Signs: Last Vital Signs Pulse 72 01/25/25 14:50 Resp 16 01/25/25 14:50 BP 107/61 01/25/25 14:50 Pulse Ox 97 01/25/25 14:50 Oxygen Delivery Method Room Air 01/25/25 14:50 BMI result Body Mass Index 26.2 Assessment & Plan Assessment & Plan (1) Primary osteoarthritis, right shoulder: Code(s): M19.011 - Primary osteoarthritis, right shoulder Category: Medical (2) Right shoulder pain: Code(s): M25.511 - Pain in right shoulder Category: Medical Qualifiers: Chronicity: chronic Qualified Code(s): M25.511 - Pain in right shoulder; G89.29 - Other chronic pain Plan Therapeutic right shoulder steroid injection. ? ?Informed consent was explained to the patient. All questions were explained and? answered.? The patient was taken inside the operating room where she was positioned prone on the operating table. Time-out was performed delineating correct site, side, the nature of the procedure, patient's allergy, . All operating room staff was participating in OR time-out procedure. ? ? The the right posterior shoulder and right upper back were prepped with ChloraPrep and draped with sterile utility towels.? C-arm was brought over the operating field and the picture of the silhouette of the glenohumeral joint was obtained on the screen. 22 gauge 3-1/2 inch needle was driven to were the point of interest in tunnel vision fashion. When the tip of the needle reached the glenohumeral joint injection of the contrast was performed delineating arthrogram. After that 4 cc of ropivacaine 0.5% mixed with Kenalog 40 mg was injected into the joint. The needle was withdrawn Band-Aid was applied. The patient tolerated procedure well. Orders: Orders FL guidance in treatment room Today M19.011 - Primary osteoarthritis, right shoulder Coding Level of Care Code Procedure Only Diagnoses Primary osteoarthritis, right shoulder M19.011 Chronic right shoulder pain M25.511; G89.29 Chronicity: chronic
[2025-01-25 14:50] VITALS: BP 107/61; PULSE 72; RESP 16; O2SAT 97
== END 2025-01-25 15:05 | disposition home or self-care (01) ==
LOC: HO.PMCPRC 14:22
PROVIDERS: PCP Internal Medicine; Visit Provider Anesthesiology
DX: G89.29 Other chronic pain (principal); M19.011 Primary osteoarthritis, right shoulder; M25.511 Pain in right shoulder
CPT/HCPCS: 20610; 77002

== ENCOUNTER 2025-02-23 09:10 | Outpatient (REF) | payer OTHER, SELFPAY ==
--- NOTE | ~2025-02-23 | MM_ITS ---
STUDY: DUAL ENERGY X-RAY ABSORPTIOMETRY / DXA REASON FOR EXAM: Female, 80 years old Z78.0 - Asymptomatic menopausal state TECHNIQUE: Bone Mineral Density (BMD) measurements of the lumbar spine and left hip were obtained using [address] COMPARISON: January 26, 2019 FINDINGS: L1-L4 BMD: 1.388 g/cm2 L1-L4 T score: 1.7. This corresponds to Normal bone density. This represents a 3.4* % increase in bone density compared with prior exam from January 26, 2019. Left femoral neck BMD: 0.826 g/cm2 Left femoral neck T score: -1.5. This corresponds to osteopenia. Left total hip BMD: 0.870 g/cm2 Left total hip T score: -1.1. This corresponds to osteopenia. This represents a -5.6* % decrease in bone density compared with prior exam from January 26, 2019. * - Indicates a statistically significant change. FRAX score: 10 year risk of major osteoporotic fracture 8.3%, 10 year risk of hip fracture 2.0% MM/XR DEXA axial skeleton IMPRESSION: Osteopenia Reference Information: The T-score is the number of standard deviations above or below the standard which is normal for young adults at their peak bone mineral density. The World Health Organization (WHO) interprets the T-scores as follows: At or above -1 SD Normal bone density Between -1 and -2.5 SD Osteopenia At or below -2.5 SD Osteoporosis Electronically signed by: Nicolas Romero MD 02/23/2025 09:46 AM [facility] [place]
== END 2025-02-23 09:11 | disposition home or self-care (01) ==
LOC: HO.MAMMO 09:10
PROVIDERS: PCP Internal Medicine; Visit Provider Internal Medicine
DX: Z13.820 Encounter for screening for osteoporosis (principal); Z78.0 Asymptomatic menopausal state
CPT/HCPCS: 77080

== ENCOUNTER → 2025-02-23 09:15 | Outpatient (BNV) | payer OTHER, SELFPAY | PROVIDERS: PCP Internal Medicine; Visit Provider Radiology Body Imaging | DX: E28.39 Other primary ovarian failure (principal) | CPT/HCPCS: 77080 ==